=== PATIENT | female | born 1985 | race Two or more races ===

== ENCOUNTER → 2024-05-26 13:11 | Outpatient (BNVA) | payer SELFPAY | PROVIDERS: Visit Provider Physician Assistant Medical | DX: Z02.1 Encounter for pre-employment examination (principal); Z02.89 Encounter for other administrative examinations | CPT/HCPCS: 86481; 86706; 86735; 86762; 86765; 86787 ==

== ENCOUNTER 2024-07-20 04:39 | Emergency (ER) | payer OTHER, SELFPAY ==
--- NOTE | 2024-07-20 | ECG_ITS ---
Test Reason : chest pain Blood Pressure : / mmHG Vent. Rate : 055 BPM Atrial Rate : 055 BPM P-R Int : 174 ms QRS Dur : 088 ms QT Int : 418 ms P-R-T Axes : 026 062 035 degrees QTc Int : 399 ms Sinus bradycardia Otherwise normal ECG No previous ECGs available Referred By: Generic ED Physician Electronically Signed By:ALEC YOUNGBLOOD MD
--- NOTE | ~2024-07-20 | XR_ITS ---
EXAMINATION: XR CHEST CLINICAL INFORMATION: chest pain, cough, shortness of breath COMPARISON: None available. TECHNIQUE: 2 views of the chest were obtained. FINDINGS: Normal appearance of the cardiomediastinal structures. No effusions or pneumothoraces. Normal pattern of pulmonary vasculature. No focal pulmonary consolidation. Minimal multilevel anterior endplate osteophytosis of the thoracic spine. XR/XR chest 2V IMPRESSION: No cardiopulmonary abnormalities. Lungs clear. Electronically signed by: Dontrell Rodriguez MD 07/20/2024 06:23 AM REBECCA LARSEN
[2024-07-20 04:56] VITALS: BP 165/60; PULSE 60; RESP 18; TEMP 36.7; O2SAT 98; BMI 36.8
[2024-07-20 05:50] LABS: Hemoglobin 14.6 g/dl (12.0-16.0); Mean Corpuscular HGB Conc 34.8 g/dl (31.0-35.0); Mean Corpuscular Hemoglobin 31.6 pg (27.0-33.0); Mean Corpuscular Volume 90.9 fL (80.0-98.0); Mean Platelet Volume 10.7 fL (9.4-12.3); Platelet Count 211 X10*3/uL (160-400); Red Blood Count 4.62 X10*6/uL (4.20-5.50); Red Cell Distribution Width 12.6 % (11.0-16.0); White Blood Count 8.5 X10*3/uL (4.8-10.8)
[2024-07-20 05:56] VITALS: PULSE 68; RESP 18; O2SAT 98
[2024-07-20] MEDS: Albuterol Sulfate 2.5 MG, Albuterol Sulfate (0.083%) 2.5 MG 5 MG INHALE (05:58)
[2024-07-20] MEDS: Ketorolac Tromethamine 15 MG/ML VIAL IVPUSH (05:59)
[2024-07-20] MEDS: ondansetron HCL 4 MG/2 ML VIAL IVPUSH (05:59)
[2024-07-20] MEDS: methylPREDNISolone Sod Succ 125 MG/2 ML VIAL 60 MG IVPUSH (05:59)
--- NOTE | 2024-07-20 06:02 | ED_ITS ---
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 She didn't take any medications [employer] as she was at work. complaint: URI/GI illness Onset (ago): hour(s) (several) Location: head and chest Radiation: non-radiation Severity: moderate Quality: aching Pain Consistency: intermittent Relieving factors: none Exacerbating factors: none Associated symptoms: cough, fever/chills, headaches, loss of appetite, malaise, nausea/vomiting and weakness Treatments prior to arrival: none Related Data Previous Rx's ?Medication ?Instructions ?Recorded amoxicillin 875 mg-potassium 1 tab PO BID #14 tabs 07/20/24 clavulanate 125 mg tablet cyclobenzaprine 10 mg tablet 10 mg PO TID PRN muscle spasm #20 07/20/24 tabs ondansetron 4 mg disintegrating 4 mg PO Q8H PRN nausea and 07/20/24 tablet vomiting #20 tabs prednisone 20 mg tablet 40 mg (2 x 20 mg) PO DAILY 5 days 07/20/24 #10 tabs Allergies Allergy/AdvReac Type Severity Reaction Status Date / Time No Known Allergies Allergy Verified 07/20/24 04:59 Review of Systems 2 Review of Systems: Constitutional : No Fever, pos Chills ENT/Mouth : No Hoarseness, No sore throat, No Rhinorrhea Eyes: No Redness, No Discharge, No Vision Changes Cardiovascular : pos Chest Pain, positive SOB Respiratory : positive Cough, No Sputum, positive Wheezing, Gastrointestinal : pos Nausea, pos Vomiting, pos Diarrhea, No abdominal Pain Genitourinary : No Dysuria, No Hematuria Musculoskeletal : No joint pain, No Myalgias Skin : No rash Neuro : No Weakness, No Numbness, No Headache Psych : No anxiety, depression All other systems reviewed and are negative [facility] Past Medical History Attestation statement: The following information was validated with the patient. Source: old records reviewed Medical History (Updated 07/20/24 @ 07:10 by Sheree Whitehead DO) Bronchitis Social History Social History (Updated 07/20/24 @ 06:08 by Sheree Whitehead DO) Patient Tobacco Use Status: Former Tobacco user Use of substances other than those prescribed or required for medical reasons: No Advance Directives: No Advance Directives Information Provided: Yes Patient : No Physical Exam ED Vital Signs: Vital Signs - 24 hr 07/20/24 04:56 07/20/24 05:56 Temperature 98.0 F Pulse Rate 60 68 Respiratory Rate 18 18 Blood Pressure 165/60 H Pulse Oximetry 98 Oxygen Delivery Method Room Air BMI result Body Mass Index 36.8 Appearance: Alert. Oriented X3. No acute distress. Eyes: Pupils equal, round and reactive to light. ENT: Pharynx normal. Neck: Normal inspection. Neck supple. CVS: Normal heart rate and rhythm. Pulses normal. Respiratory: No respiratory distress. Breath sounds coarse and mild rhonchi anterior chest Abdomen: Soft and nontender. Skin: Skin warm and dry. Normal skin color. Normal skin turgor. Extremities: No lower extremity edema. No calf ttp Neuro: Oriented X 3. No motor deficit. No sensory deficit. Medications Administered Discontinued Medications Generic Name Dose Route Start Last Admin Trade Name Freq PRN Reason Stop Dose Admin Albuterol Sulfate 2.5 mg/ 5 mg 07/20/24 05:49 07/20/24 05:58 Albuterol Sulfate 2.5 mg INHALE 07/20/24 05:50 5 mg ONCE ONE Administration Ketorolac Tromethamine 15 mg 07/20/24 05:42 07/20/24 05:59 Ketorolac Tromethamine 15 Mg/Ml Vial IVPUSH 07/20/24 05:43 15 mg ONCE ONE Administration Methylprednisolone Sodium Succinate 60 mg 07/20/24 05:42 07/20/24 05:59 Methylprednisolone Sod Succ 125 Mg/2 Ml Vial IVPUSH 07/20/24 05:43 60 mg ONCE ONE Administration Ondansetron HCl 4 mg 07/20/24 05:42 07/20/24 05:59 Ondansetron Hcl 4 Mg/2 Ml Vial IVPUSH 07/20/24 05:43 4 mg ONCE ONE Administration Medical Decision Making Medical Decision Making MDM Narrative: 39 yo female with PMH of bronchitis here with c/o cough, chills, body aches, headaches, n/v/d started abruptly at this time will need basic labs, CXR, viral panel - start on nebs, IV toradol/zofran and steroids. Possible viral syndrome, bronchitis Differential Diagnosis Differential Diagnoses: The differential diagnosis associated with the presentation includes given rapidity of symptoms and sick contacts suspect viral syndrome bronchitis Admission/Observation Consideration of admission/observation: Escalation of care including admission/observation considered feels much better no hypoxia stable for DC Lab Data [facility] Lab Attestation statement: I reviewed the patient's lab results. 07/20/24 05:44 07/20/24 05:44 Labs: Lab Results 07/20/24 Range/Units 05:44 WBC 8.5 (4.8-10.8) X10*3/uL RBC 4.62 (4.20-5.50) X10*6/uL Hgb 14.6 (12.0-16.0) g/dl Hct 42.0 (37.0-47.0) % MCV 90.9 (80.0-98.0) fL MCH 31.6 (27.0-33.0) pg MCHC 34.8 (31.0-35.0) g/dl RDW 12.6 (11.0-16.0) % Plt Count 211 (160-400) X10*3/uL MPV 10.7 (9.4-12.3) fL Absolute Nucleated RBC 0.000 (0.0-0.012) X10*3/uL Nucleated RBC % (auto) 0.0 (0.0-0.2) /100WBC Sodium 139 (135-145) mmol/L Potassium 4.7 (3.3-5.1) mmol/L Chloride 107 (96-108) mmol/L Carbon Dioxide 25 (22-29) mmol/L Anion Gap 12 (12-20) BUN 10 (9-16) mg/dL Creatinine 0.84 (0.5-1.4) mg/dL Estim Creat Clear Calc 111.9 Estimated GFR > 60 Random Glucose 92 (60-115) mg/dL Calcium 10.0 (8.4-10.2) mg/dL Total Bilirubin 0.4 (0.0-1.0) mg/dL AST 25 (5-31) U/L ALT 24 (0-31) U/L Alkaline Phosphatase 60 (39-117) U/L Troponin I High Sens < 2.7 (<3.5-17.0) ng/L Total Protein 7.3 (6.5-8.0) g/dL Albumin 4.3 (3.5-5.0) g/dL Influenza Type A (PCR) NEGATIVE (Negative) Influenza Type B (PCR) NEGATIVE (Negative) RSV RNA Qual (PCR) NEGATIVE (Negative) SARS-CoV-2 RNA (RT-PCR) NEGATIVE (Negative) Independent Interpretation I performed an independent interpretation of an: EKG and Plain X-Ray (no PNA) Interpretation: Rate: 55 Rhythm: SB [place]: normal Normal P waves. Normal ALEXUS. Normal QRS complex. ST T wave : inverted t waves V1, no ALISTAIR qTC: 399 prior studies: no acute ischemia The study has been interpreted contemporaneously by me. . External Record Review External record reviewed: Outpatient record Prescription Management I considered prescription management with: Antibiotic and Other Discharge Plan Discharge Clinical Impression: Acute viral syndrome, Bronchitis Patient Disposition: Home, Self-Care Instructions: Acute Bronchitis (ED), Viral Syndrome (ED) Additional Instructions: labs reassuring chest xray negative EKG reassuring please follow up for any concerns or worsening symptoms stay hydrated Prescriptions: New cyclobenzaprine 10 mg tablet 10 mg PO TID PRN (Reason: muscle spasm) Qty: 20 0RF prednisone 20 mg tablet 40 mg PO DAILY 5 Days Qty: 10 0RF ondansetron 4 mg tablet,disintegrating 4 mg PO Q8H PRN (Reason: nausea and vomiting) Qty: 20 0RF amoxicillin-pot clavulanate 875-125 mg tablet 1 tab PO BID Qty: 14 0RF Print Language: Nepali
--- NOTE | 2024-07-20 06:05 | PC.NURSE ---
a&ox4. vss and up to date. pt presents to the ED w/ URI sx a few days. pt endorsing increased sob/chest pain/fever/chills/body aches. pt concerned for bronchitis d/t previous hx. labs obtained and ekg performed in triage. 20gIV placed in the left AC - medication administered per provider order. pt currently receiving breathing tx via RT at this time. chest xray completed - results pending at this time. pt on RA w/o difficulty. no sob/wob noted. respirations even/unlabored. plan of care ongoing. call pyle placed within reach.
[2024-07-20 06:12] LABS: Alanine Aminotransferase 24 U/L (0-31); Albumin Level 4.3 g/dL (3.5-5.0); Alkaline Phosphatase 60 U/L (39-117); Anion Gap 12 (12-20); Aspartate Amino Transferase 25 U/L (5-31); Bilirubin Total 0.4 mg/dL (0.0-1.0); Blood Urea Nitrogen 10 mg/dL (9-16); Carbon Dioxide 25 mmol/L (22-29); Chloride 107 mmol/L (96-108); Creatinine Clr Calc Pharmacy 111.9; Estimated Glomerular Filt Rate > 60; Glucose Random 92 mg/dL (60-115); Potassium 4.7 mmol/L (3.3-5.1); Sodium 139 mmol/L (135-145); Total Protein 7.3 g/dL (6.5-8.0)
[2024-07-20 06:19] LABS: Troponin-I High Sensitivity < 2.7 ng/L (<3.5-17.0)
[2024-07-20 06:28] LABS: Influenza A PCR NEGATIVE (Negative); Influenza B PCR NEGATIVE (Negative); Resp Syncy Virus RNA Qual PCR NEGATIVE (Negative); SARS COV2 PCR INHOUSE NEGATIVE (Negative)
[2024-07-20 07:28] VITALS: BP 131/68; PULSE 68; RESP 18; TEMP 37; O2SAT 100
[2024-07-20 07:29] VITALS: BP 131/68; PULSE 68; RESP 18; TEMP 37; O2SAT 100
--- OUTSIDE RECORDS SUMMARY | 2024-07-20 22:36 | XMS_ITS | Continuity of Care Document ---
Author Organization [facility] Address [address] [facility] [place] [facility] [address] [place] [address] Phone Care Team Providers Care Neighborhood Worker Name Role Phone Collin Barraza MD Unavailable Unavailable Allergies, Adverse Reactions, Alerts Substance Reaction Status Criticality No Known Drug Allergies Active No I nformation Medications Medication Instructions Dosage Effective Dates (start - stop) Status Comments naproxen 500 mg tablet take 1 tablet by oral route every 12 hours x 10 days with food - Active POST-OP UFE docusate sodium 100 mg capsule take 1 capsule by oral route every 12 hours x 10 days - Active POST-OP lactulose 20 gram/30 mL oral solution take 30 milliliter by oral route once daily if needed for constipation - Active POST-OP UFE hydrocodone 5 mg-acetaminophen 325 mg tablet take 1 tablet by oral route every 4-6 hours as needed for breakthrough pain. - Active POST-OP UFE bupropion HCl 75 mg tablet take 1 tablet by oral route 2 times every day 75 MG - Active Advair Diskus 100 mcg-50 mcg/dose powder for inhalation inhale 1 puff by inhalation route 2 times every day in the morning and evening approximately 12 hours apart 1.00 puff - Active Procedures Procedure Date Office/outpatient visit est To Be Coded Office/outpatient visit est CONTRAST, 300/ML, PER ML MOD SED BY OR SUP BY PHYSICIAN UFE To Be Coded Vasc embolize/occlude organ Ins cath abd/l-ext art 3rd Ins cath abd/l-ext art 2nd Us guide vascular access Mod sed same phys/qhp 5/>yrs Mod sed same phys/qhp ea Office/outpatient visit new To Be Coded Office/outpatient visit new Advance Directives Directive Yes / No Effective Date File Name No Information Encounters Encounter Description Practice Location Reason(s) For Visit Diagnoses Date Provider Providers Copied on Encounter [facility] [place] [facility] [employer], [address] [place] [address], [id number] , tel:[phone] [facility] [place] [facility] [employer] [facility] No Information 2 Madi Polanco. [address] [place] [address], [address], [id number] , [place]. tel:[phone] Office/outpa tient visit est [facility] [employer] [facility], [address] [place] [address], [id number] , tel:[phone] [facility] [employer] [facility] Leiomyoma of uterus, unspecifiedLeiomyoma of uterus, unspecified 2 Chip Polanco. [address] [place] [address], [address], [address], [place]. tel:[phone] Referring Provider: Collin Saunders, [address] [place] [address], [id number]. tel:[phone] [facility] [employer] [facility], [address] [place] [address], [id number] , [place] tel:[phone] [facility] [employer] [facility] 2 Madi Polanco. [address] [place] [address], [id number] , [place]. tel:[phone] Referring Provider: Collin Saunders, [address] [place] [address], [id number]. tel:[phone] [facility] [employer] [facility], [address] [place] [address], [id number] , tel:[phone] [facility] No Information 2 Chip Polanco. [address] [place] [address], [address], [address], . tel:[phone] Office/outpa tient visit [facility], [address] [place] [address], [id number] , tel:[phone] [address] Leiomyoma of uterus, unspecifiedLeiomyoma of uterus, unspecified 2 Chip Polanco. [address] [place] [address], [facility] [address], [place], [facility], . tel:[phone] Referring Provider: Collin Saunders, [address] [place] [address] [place] [address], [facility]. tel:[phone] As per patient privacy policy some of the clinical information may not be visible. Family History Family Member Type Diagnosis Age At Onset No Information Payers Payer name Insurance type Covered constitution party ID Authoriza tion(s) Assured Benefits [employer] CI [id number] Social History Type Description Quantity Date Captured Comments Sex Female Smoking Status No Information Gender Identity Female Chief Complaint And Reason For Visit No Information Reason For Referral Reason For Referral No Information Plan Of Treatment Date Type Action Status Future Order: Radiology Order Lo wer Body Flouroscopy ([id number]), Ordered on: Ordered Future Order: Lab Order UCG (300), Ordere d on: Ordered History Of Present Illness Encounter Date Complaint History Of Prese nt Illness No Information Functional Status Date Functional Assessmen t No Information Instructions Date Instruction Additional Infor mation No Information Assessments Type Assessment Date No Information Patient Care Teams Name Effective Dates (start - stop) Status Members No Information
--- OUTSIDE RECORDS SUMMARY | 2024-07-20 22:40 | XMS_ITS | Continuity of Care Document ---
Author Organization [facility] Address [address] [facility] [address] [place] [address] Phone Care Team Providers Care Personal Attendant Name Role Phone Collin Barraza MD Unavailable [...] Diagnoses Date Provider Providers Copied on Encounter [facility] [employer], [address] [place] [address], [id number] , tel:[phone] [facility] No Information 2 Madi Polanco. [address] [place] [address], [address], [id number] , [place]. tel:[phone] Office/outpa tient visit est [facility], [address] [place] [address], [id number] , tel:[phone] [facility] Leiomyoma of uterus, unspecifiedLeiomyoma of uterus, unspecified 2 Chip Polanco. [address] [place] [address], [address], [address], [place]. tel:[phone] Referring Provider: Collin Saunders, [address] [place] [address], [id number]. tel:[phone] [facility], [address] [place] [address], [id number] , [place] tel:[phone] [facility] 2 Madi Polanco. [address] [place] [address], [id number] , [place]. tel:[phone] Referring Provider: Collin Saunders, [address] [place] [address], [id number]. tel:[phone] [facility], [address] [place] [address], [id number] , tel:[phone] [facility] No Information 2 Chip Polanco. [address] [place] [address], [address], [address], . tel:[phone] Office/outpa tient visit [facility], [address] [place] [place] [address], [id number] , tel:[phone] [address] Leiomyoma of uterus, unspecifiedLeiomyoma of uterus, unspecified 2 Chip Polanco. [address] [place] [address], [facility] [address], [place], [facility], . tel:[phone] Referring Provider: Collin Saunders, [address] [place] [address] [place] [address], [facility]. tel:[phone] As per patient privacy policy some of the clinical information may not be visible. Family History Family Member Type Diagnosis Age At Onset No Information Payers Payer name Insurance type Covered constitution party ID Authoriza tion(s) [employer] CI [id number] Social History Type Description Quantity Date Captured Comments Sex Female Smoking Status No Information Gender Identity Female Chief Complaint And Reason For Visit No Information Reason For Referral Reason For Referral No Information Plan Of Treatment Date Type Action Status Future Order: Radiology Order Lo wer Body Flouroscopy ([id number]), Ordered on: Ordered Future Order: Lab Order [...]
== END 2024-07-20 07:29 | disposition home or self-care (01) ==
PROVIDERS: Emergency Provider Emergency Medicine
DX: B34.9 Viral infection, unspecified (principal); J40 Bronchitis, not specified as acute or chronic; R06.02 Shortness of breath; Z03.818 Encounter for observation for suspected exposure to other biological agents ruled out; R05.9 Cough, unspecified
CPT/HCPCS: 0241U; 71046; 80053; 84484; 85027; 93005; 94640; 96374; 96375; 99284; 99285; J1885; J2405; J2919

== ENCOUNTER → 2024-07-20 05:10 | Outpatient (BNV) | payer OTHER, SELFPAY | PROVIDERS: Emergency Provider Emergency Medicine; Visit Provider Internal Medicine Cardiovascular Disease | DX: R07.9 Chest pain, unspecified (principal) | CPT/HCPCS: 93010 ==

== ENCOUNTER 2024-08-21 05:31 | Emergency (ER) | payer OTHER, SELFPAY ==
--- NOTE | ~2024-08-21 | XR_ITS ---
CLINICAL HISTORY: work related injury 2 view right knee Comparison: None Findings: No fractures or dislocations. Small patellofemoral compartment osteophytes. No joint space loss or erosions. No joint effusion. No radiopaque foreign body. IMPRESSION: No acute findings. Mild patellofemoral compartment osteoarthropathy. This document has been electronically signed by: Shawanda Dowell MD on 08/21/2024 06:18:45
[2024-08-21 05:33] VITALS: BP 120/74; PULSE 77; RESP 16; TEMP 36.7; O2SAT 99; BMI 36.8
--- NOTE | 2024-08-21 06:10 | PC.NURSE ---
pt awaiting to be seen by ed provider staff member at [facility] xray taken
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
[2024-08-21] MEDS: Ibuprofen 600 MG TABLET PO (07:18)
[2024-08-21 07:24] VITALS: BP 134/86; PULSE 65; RESP 16; TEMP 36.7; O2SAT 99
[2024-08-21 07:34] VITALS: BP 134/76; PULSE 62; RESP 16; TEMP 36.7; O2SAT 98
== END 2024-08-21 07:35 | disposition home or self-care (01) ==
PROVIDERS: Emergency Provider Emergency Medicine
DX: S80.911A Unspecified superficial injury of right knee, initial encounter (principal); X58.XXXA Exposure to other specified factors, initial encounter; Y04.8XXA Assault by other bodily force, initial encounter; Y93.89 Activity, other specified; Y92.239 Unspecified place in hospital as the place of occurrence of the external cause; Y99.0 Civilian activity done for income or pay
CPT/HCPCS: 73560; 99284

== ENCOUNTER 2024-08-29 13:32 | Outpatient (AMB) | payer OTHER, SELFPAY ==
[2024-08-29 13:36] VITALS: BP 130/84; PULSE 88; TEMP 36.2; O2SAT 96; BMI 36.8
--- NOTE | 2024-08-29 13:36 | A.OFFPC_ITS ---
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 Londono, in [facility] Last visit: 1 year ago Last PE:more than a year Specialist: LIYAHN: jonathont on 09/11/24 mammogram: due- Past medical history: depression, anxiety, Medications: wellbutrin 150 mg Family HX: grandmother passed of lung ca, grandfather dialysis, mother diabetes, father had heart issues, not sure Problem: The patient is a 39-year-old female presenting to establish care She reports that she moved up from [place] and has been having issues to find a PCP Patient reports that she has been having a lot of stress since the passing of her father Reports that she used to take Wellbutrin 150 mg and she would like to get back on this medication Because it helped her with her depression and also helped her quit smoking before Reported that she started smoking again due to increased stress depression: She used to be on Wellbutrin 150mg and it helped her stop smoking as well. will reorder wellbutrin and refer her to Psychiatry Reports that she would like talk to someone She denies SI/HI Anxiety: Reports that she gets anxious around the a crowd of people ----reports that Wellbutrin helped her i n the past cigarettes gravings: She is currently smoking 1/2 pack /day Chest pain: Patient reports that she has been having intermittent chest pain for the last 6 months at least once a day She reports that the sensation is right in the middle of her chest just above the epigastric area She reports that these sensations only lasts for seconds however sometimes it takes her breath away Reports that she feels like her heart stops and restarts again Patient reports that she thinks this is all stress related She denies any radiation of the pain, denies dizziness, denies nausea and vomiting, heart palpitation: Reports that sometime she gets it with the chest pain and other times separately from the chest pain Reports that her heart palpitation comes and goes quickly as well Anxiety: will referral acl injury: 2019, left knee surgery. right knee injury at work:twisting trying to get away from a patient She reports that this has been hurting and that she went to the emergency room on 08/21/2024 There they did an x-ray of the knee that showed no acute injuries Patient is not interested in PT at this time reports that she is using what she learned from PT in the past after injuring in her left knee Reports that the pain get as high as a 6 to 7/10 but she does not like medi cations She has been using Tylenol arthritis with positive effect Complain of pain at the medial aspect of her right knee with the danny test. will referred the patient to psychiatry book her physical for physical in 2 weeks. lab order -mammogram ordered [facility] Medical History Bronchitis Social History Housing: House Patient Tobacco Use Status: Current everyday Tobacco user Cigarette Packs Per Day: 0.5 Cigarettes Per Day: 10 e-Cigarette/Vaping Use: Never Used service: No Current occupational status: employed Cognitive needs: No Hearing needs: No Vision needs: No Questionnaire PHQ-9 Over the last 2 weeks, how often have you been bothered by any of the following problems? 1. Little interest or pleasure in doing things: several days 2. Feeling down, depressed, or hopeless: several days 3. Trouble falling or staying asleep, or sleeping too much: several days 4. Feeling tired or having little energy: several days 5. Poor appetite or overeating: several days 6. Feeling bad about yourself - or that you are a failure or have let yourself or your family down: not at all 7. Trouble concentrating on things, such as reading the newspaper or watching television: several days 8. Moving or speaking so slowly that other people could have noticed. Or the opposite - being so fidgety or restless that you have been moving around a lot more than usual: not at all 9. Thoughts that you would be better off or of hurting yourself in some way: not at all Total score: 6 Source: Developed by Drs. James Lang, Tabitha De, Guillermo Spencer and colleagues, with an educational jayro from [email or web address]. Thrive Questionnaire Date Thrive assessed: 08/29/24 I am a: Patient What is your living situation today?: I have a steady place to live Within the past 12 months, did the food you bought not last and you didn't have the money to get more?: Sometimes True Within the past 12 months, did you worry whether your food would run out before you got money to buy more?: Sometimes True Do you have trouble paying for medicines?: Yes Do you have trouble getting transportation to medical appointments?: No Do you have trouble paying your heating and electricity bill?: Yes Do you have trouble taking care of your child, family member or friend?: Yes Do you have trouble with day-to-day activities such as bathing, preparing meals, shopping, managing finances, etc.?: No Are you currently unemployed and looking for a job?: No Are you interested in more education?: No Please select the resources that you would like help with: Utilities and Care for elder or disabled Currently or been in a relationship where the following occur: I choose not to answer THRIVE Score: 3 AUDIT C Alcohol Use Questionnaire (AUDIT-C) 1. How often do you have a drink containing alcohol?: 2-3 times a week 2. How many drinks containing alcohol do you have on a typical day when you are drinking?: 3 or 4 3. How often do you have six or more drinks on one occasion?: Monthly Total Score: 6 MATT-7 AMB Questionnaire MATT-7 Date MATT - 7 assessed: 08/29/24 Feeling nervous, anxious, or on edge: 1 = Several days Not being able to stop or control worryin = Nearly every day Worrying too much about different things: 2 = More than half the days Trouble relaxin = More than half the days Being so restless that it is hard to sit still: 1 = Several days Becoming easily annoyed or irritable: 2 = More than half the days Feeling afraid as if something awful might happen: 1 = Several days Total MATT-7 score (0-4 normal; 5-9 mild; 10-14 moderate; 15-21 severe): 12 Source: Developed by Drs. James Lang, Tabitha De, Guillermo Spencer and colleagues, with an educational jayro from [email or web address]. MATT-7 Assessment Billing MATT-7 Assessment Tool: MATT-7 Assessment 82395 Review of Systems Const Details: Denies chills, Denies fatigue, Denies fever(s), Denies headache(s) and Denies weakness HEENT Denies change in vision, Denies dizziness, Denies headache(s), Denies hearing loss, Denies nasal congestion, Denies sinus pain, Denies sinus pressure and Denies sore throat Card Reports recurrent chest pain, Denies lightheadedness, Denies dyspnea and reports recurrent palpitations Resp Denies cough, Denies dyspnea and Denies wheezing GI Denies abdominal pain, Denies melena, Denies hematochezia, Denies change in bowel habits, Denies dyspepsia and Denies nausea Denies hematuria and Denies dysuria Musc Reports right knee pain, Denies abnormal gait, Denies myalgias, Denies numbness and Denies tingling Skin/Breast Denies rash, Denies unusual bruising and Denies wounds Neuro Denies abnormal gait, Denies dizziness, Denies headache(s), Denies memory loss, Denies numbness, Denies Sensory deficit (Neuro), Denies tingling and Denies weakness Psych Reports anxiety, reports depression and Denies memory loss Endo Denies cold intolerance, Denies fatigue, Denies heat intolerance, Denies polydipsia and Denies polyuria Viktor/Lymph Denies easy bleeding and Denies easy bruising Aller/Immun Denies wheezing Physical exam (Primary Care) Vital Signs: Last Vital Signs Temp 97.1 F 08/29/24 13:36 Pulse 88 08/29/24 13:36 BP 130/84 08/29/24 13:36 Pulse Ox 96 08/29/24 13:36 Oxygen Delivery Method Room Air 08/29/24 13:36 BMI result Body Mass Index 36.8 Tobacco/Smoking Status: Tobacco use Status Tobacco use date assessed 08/29/24 08/29/24 13:49 Patient Tobacco Use Status Current everyday Tobacco 08/29/24 13:49 e-Cigarette/Vaping Use Never Used 08/29/24 13:49 PHQ-9: PHQ-9 Score PHQ-9: Total score 6 08/29/24 13:49 Thrive Assessment: Date of Thrive Assessment Date Thrive assessed 08/29/24 08/29/24 13:49 Currently or been in a relationship where the following occur: I choose not to answer Const Other: General: no acute distress, well developed, alert and awake Nutritional Appearance: well nourished Orientation/consciousness: patient oriented x3 HENMT Head: Yes normocephalic and Yes atraumatic Ears: hearing grossly normal bilaterally and TM's normal bilaterally Eyes Pupils: Equal, round and reactive pupils present and Pupil accommodation reflex normal EOM: EOMs intact bilaterally Neck Neck: Yes normal visual inspection, Yes no lymphadenopathy and Yes trachea midline Thyroid: Thyroid normal Carotids: no bruits Lymphatic: no lymphadenopathy noted Chest Chest palpation & inspection: normal inspection of the chest Resp Effort & Inspection: normal respiratory effort Auscultation: clear to auscultation bilaterally Cardio Rate: regular rate Rhythm: regular rhythm Heart sounds: S1 normal heart sound present, S2 normal heart sound present, no gallops, no murmurs and no rubs GI Abdomen is soft and nontender palpation tenderness present Auscultation: normal bowel sounds General: Yes no CVA tenderness Back/Spine/Pelvis Back: no CVA tenderness other: left knee medical aspect 6-7/10 pain with danny test. No edema or erythema Skin General: warm and dry. Normal skin color. Normal skin turgor Lesions: no lesions Rashes: no rashes Trauma: no lacerations or abrasions Wounds: no wounds Nails: normal Neuro General: patient oriented x3, gait normal Cranial nerves: Yes Equal, round and reactive pupils present Cognition (Neuro): normal cognition Gait exam (Neuro): Normal gait present Sensory Exam: No Sensory deficit (Neuro) Extrem General: Yes normal to inspection, No edema and No calf tenderness Psych Appearance: grossly normal Affect: normal affect Attitude: cooperative Thought process: Normal thought process present Coding Level of Care Code New Pt Level 4 (42153) Diagnoses Chest pain at rest R07.9 Heart palpitations R00.2 Anxiety F41.9 Reactive depression F32.9 Depression Type: reactive depression Smoker F17.200 Encounter for screening mammogram for malignant neoplasm of breast Z12. Breast cancer screening modality: mammogram Acute pain of right knee M25.561 Chronicity: acute Additional Codes MATT-7 Assessment Billing - MATT-7 Assessment Tool: MATT-7 Assessment 15579 ([id number]) Time Spent (min) 35 Assessment & Plan Assessment & Plan (1) Chest pain at rest: Code(s): R07.9 - Chest pain, unspecified Category: Medical Plan: Patient describes he has mild pressure in the middle of her chest. She pointed right above the epigastric region. This pressure takes her breath away sometimes and only lasts a few seconds These episodes has been going on for over 6 months Patient had an EKG done on 07/20/2024 that showed sinus Edwardo with no ischemia This is reassuring-the patient complaints appointing toward her anxiety/depression and increased stress ---will restart the patient on wellbutrin 150 mg that helped her in the past and refer her to Psychiatry ---labs ordered as well (2) Heart palpitations: Code(s): R00.2 - Palpitations Category: Medical Plan: same as above (3) Anxiety: Code(s): F41.9 - Anxiety disorder, unspecified Category: Medical Plan: reorder Wellbutrin and refer the patient to Psychiatry Denies SI/HI (4) Depression: Code(s): F32.A - Depression, unspecified Category: Medical Qualifiers: Depression Type: reactive depression Qualified Code(s): F32.9 - Major depressive disorder, single episode, unspecified Plan: reorder Wellbutrin and refer the patient to Psychiatry Denies SI/HI (5) Smoker: Code(s): F17.200 - Nicotine dependence, unspecified, uncomplicated Category: Social Hx Plan: She is currently smoking a half a pack/day Reports that Wellbutrin helped her to quit in the past (6) Breast cancer screening: Code(s): Z12.39 - Encounter for other screening for malignant neoplasm of breast Category: Medical Qualifiers: Breast cancer screening modality: mammogram Qualified Code(s): Z12.31 - Encounter for screening mammogram for malignant neoplasm of breast Plan: Mammogram ordered (7) Right knee pain: Code(s): M25.561 - Pain in right knee Category: Medical Qualifiers: Chronicity: acute Qualified Code(s): M25.561 - Pain in right knee Plan: Reports twisting her knee at work, she was evaluated in the emergency room X-ray of her knee he has done:No acute findings. Mild patellofemoral compartment osteoarthropathy. She is declining PT at this time and she is not a big fan of medications Continue Tylenol Arthritis OTC Plan Patient to return in 2 weeks for physical exam. Do labs pietro Orders: Orders Complete Blood Count Auto Diff Today Z00.00 - Encounter for general adult me dical examination without abnormal findings Comprehensive [place]. Panel Fast Today Z00.00 - Encounter for general adult medical examination without abnormal findings Vitamin D 25-OH Total Today Z00.00 - Encounter for general adult medical examination without abnormal findings MM tomosynthesis screening BI Today Z12.31 - Encounter for screening mammogram for malignant neoplasm of breast Glucose Fasting Today Z00.00 - Encounter for general adult medical examination without abnormal findings TSH reflex Free T4 Today Z00.00 - Encounter for general adult medical examination without abnormal findings Lipid Panel Today Z00.00 - Encounter for general adult medical examination without abnormal findings UA CC w/rflx Micro + Cult Today Z00.00 - Encounter for general adult medical examination without abnormal findings Referrals Psychiatry Referral F41.9 - Anxiety disorder, unspecified Medications: New bupropion HCl XL (Wellbutrin XL) 150 mg PO QAM 30 tabs 3RF
== END 2024-08-29 14:21 | disposition home or self-care (01) ==
DX: R07.9 Chest pain, unspecified (principal); R00.2 Palpitations; F41.9 Anxiety disorder, unspecified; F32.9 Major depressive disorder, single episode, unspecified; F17.200 Nicotine dependence, unspecified, uncomplicated; Z12.31 Encounter for screening mammogram for malignant neoplasm of breast; M25.561 Pain in right knee

== ENCOUNTER → 2024-08-29 13:32 | Outpatient (BNVA) | payer OTHER, SELFPAY | DX: R07.9 Chest pain, unspecified (principal); R00.2 Palpitations; F41.9 Anxiety disorder, unspecified; F32.9 Major depressive disorder, single episode, unspecified; M25.561 Pain in right knee; F17.210 Nicotine dependence, cigarettes, uncomplicated | CPT/HCPCS: 96127 ==

== ENCOUNTER 2024-09-03 09:50 | Outpatient (REF) | payer OTHER, SELFPAY ==
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
--- OUTSIDE RECORDS SUMMARY | 2024-09-03 09:53 | XMS_ITS | Clinical Summary ---
Author Organization [facility] [address] [place] [address] [place] [phone] Phone Care Team Providers Care Manager Of Training And Development Name Role Phone Mor Tilley MD Primary Care Provider [phone] Social History Tobacco Use Types Packs/Day Years Used Date Smoking Tobacco: Never Assessed Sex and Gender Information Value Date Recorded Sex Assigned at Not on file Gender Identity Not on file Sexual Orientation Not on file Job Start Date Occupation Industry Not on file Not on file Not on file Plan of Treatment Upcoming Encounters Date Type Department Care Team (Late st Contact Info) Description 09/21/2024 10:30 AM EST Office Visit Obstetrics & Gynecology [address] [phone] Silvia Hunt, CNM [address] [place] [address] Health Maintenance Due Date Last Done Comments Breast Cancer Screening 1984 DTaP,Tdap,and Td Vaccines (1 - Tdap) 2003 Hepatitis B Vaccines (1 of 3 - 19+ 3-dose series) 2003 Cervical Cancer Screening: P ap Smear 2005 Depression Screening 03/04/2024 HIV Screening 03/04/2024 Hepatitis C Screening 03/04/2024 Social Influencers of Health Screening 03/04/2024 COVID-19 Vaccine (2023-2 5 season) 2024 Influenza Vaccine (#1) 2024 HIB Vaccines Aged Out No longer eligi ble based on patient's age to complete this topic HPV Vaccines Aged Out No longer eligi ble based on patient's age to complete this topic Hepatitis A Vaccines Aged Out No long er eligible based on patient's age to complete this topic IPV Vaccines Aged Out No longer eligi ble based on patient's age to complete this topic MMR Vaccines Aged Out No longer eligi ble based on patient's age to complete this topic Meningococcal ACWY Vaccine Aged Out N o longer eligible based on patient's age to complete this topic Pneumococcal Vaccine: Pediat rics (0 to 5 Years) and At-Risk Patients (6 to 64 Years) Aged Out No longer eligible b ased on patient's age to complete this topic RSV Immunization Patients Un brenna 20 months Aged Out No longer eligible b ased on patient's age to complete this topic Varicella Vaccines Aged Out No longer eligible based on patient's age to complete this topic Care Teams Manager Of Training And Development Relationship Specialty Start Date End Date Mor Tilley MD [address] [place] [address] PCP - General 12/02/23
[2024-09-03 10:08] LABS: MANUAL DIFF FLAG NO
[2024-09-03 11:25] LABS: Basophils Percent Auto 0.2 % (0-2); Eosinophils Absolute Auto 0.2 X10*3/uL (0.0-0.4); Eosinophils Percent Auto 2.5 % (0-4); Hematocrit 45.3 % (37.0-47.0); Hemoglobin 15.5 g/dl (12.0-16.0); Imm Gran Abs Auto 0.04 X10*3/uL (0.00-0.03); Imm Gran Pct Auto 0.5 % (0.0-0.4); Lymphocytes Absolute Auto 2.2 X10*3/uL (1.2-4.9); Lymphocytes Percent Auto 26.3 % (20-40); Mean Corpuscular HGB Conc 34.2 g/dl (31.0-35.0); Mean Corpuscular Hemoglobin 31.2 pg (27.0-33.0); Mean Corpuscular Volume 91.1 fL (80.0-98.0); Mean Platelet Volume 11.1 fL (9.4-12.3); Monocytes Absolute Auto 0.6 X10*3/uL (0.1-1.2); Monocytes Percent Auto 7.7 % (2-11); Neutrophils Absolute Auto 5.3 x10*3/uL (2.0-8.3); Neutrophils Percent Auto 62.8 % (45-73); Platelet Count 220 X10*3/uL (160-400); Red Blood Count 4.97 X10*6/uL (4.20-5.50); White Blood Count 8.4 X10*3/uL (4.8-10.8)
[2024-09-03 11:28] LABS: Appearance Urine Clear; Color Urine Yellow; Glucose Urine UA Negative (Negative); Leukocyte Esterase Urine Negative (Negative); Nitrite Urine Negative (Negative); Specific Gravity - Urine 1.025 (1.005-1.025); Urine Blood Negative (Negative); Urine Ketones Negative (Negative); Urine Protein Negative (Neg-Trace)
[2024-09-03 12:12] LABS: Albumin Level 4.4 g/dL (3.5-5.0); Alkaline Phosphatase 66 U/L (39-117); Anion Gap 11 (12-20); Aspartate Amino Transferase 29 U/L (5-31); Bilirubin Total 0.8 mg/dL (0.0-1.0); Blood Urea Nitrogen 10 mg/dL (9-16); Calcium 8.7 mg/dL (8.4-10.2); Carbon Dioxide 25 mmol/L (22-29); Chloride 106 mmol/L (96-108); Cholesterol 246 mg/dL (<200); Estimated Glomerular Filt Rate > 60; Glucose Fasting 79 mg/dL (60-99); HDL Cholesterol 56 mg/dL (>40); LDL Cholesterol Calculated 166 mg/dL (<100); Sodium 138 mmol/L (135-145); Total Protein 7.6 g/dL (6.5-8.0); Triglycerides 122 mg/dL (<150)
[2024-09-03 12:43] LABS: Alanine Aminotransferase 37 U/L (0-31); TSH reflex Free T4 1.84 uIU/mL (0.32-4.0); Vitamin D 25-OH Total 9.3 ng/mL (>30)
== END 2024-09-03 09:51 | disposition home or self-care (01) ==
LOC: HO.LAB 09:50
DX: Z00.00 Encounter for general adult medical examination without abnormal findings (principal); Z13.220 Encounter for screening for lipoid disorders; Z13.0 Encounter for screening for diseases of the blood and blood-forming organs and certain disorders involving the immune mechanism
CPT/HCPCS: 36415; 80053; 80061; 81003; 82306; 84443; 85025

== ENCOUNTER → 2024-09-05 13:40 | Outpatient (BNVA) | payer OTHER, SELFPAY | PROVIDERS: Visit Provider Physician Assistant Medical | DX: Z13.89 Encounter for screening for other disorder (principal) | CPT/HCPCS: 99202 ==

== ENCOUNTER 2024-09-09 19:45 | Outpatient (REF) | payer OTHER, SELFPAY ==
--- NOTE | ~2024-09-09 | MR_ITS ---
EXAMINATION: MRI RIGHT KNEE WITHOUT CONTRAST HISTORY: PERSISTENT MEDIAL PAIN COMPARISON: Correlation is made with plain films of the right knee dated 08/21/2024. TECHNIQUE: Coronal T1 and fat-suppressed proton density, sagittal proton density and fat-suppressed proton density, and axial fat suppressed T2 weighted MR images of the right knee were obtained. FINDINGS: Bone marrow: Bone marrow signal intensity is normal. Joint effusion: There is no joint effusion. Overton's cyst: There is no Overton's cyst. Articular cartilage: Intact Muscles: The visualized muscles demonstrate normal signal intensity. Anterior cruciate ligament: Intact Posterior cruciate ligament: Intact Medial collateral ligament: The medial capsular ligament is intact. However, the proximal portion of the tibial collateral ligament is thickened and demonstrates increased signal intensity. This portion of the ligament is displaced away from the distal femur without evidence of complete disruption. Findings are consistent with a grade 2 sprain. The distal portion of the ligament is intact. Lateral collateral ligament: Intact Medial meniscus: Intact Lateral meniscus: Intact Popliteus tendon: Intact Quadriceps tendon: Intact Patellar tendon: Intact Patellar retinacula: Intact MR/MR knee RT wo con IMPRESSION: Grade 2 sprain of the proximal tibial collateral ligament. Electronically signed by: James Farris MD 09/12/2024 07:34 AM REBECCA
== END 2024-09-09 19:46 | disposition home or self-care (01) ==
LOC: HO.MRI 19:45
PROVIDERS: Visit Provider Physician Assistant Medical
DX: M25.561 Pain in right knee (principal); R60.0 Localized edema
CPT/HCPCS: 73721

== ENCOUNTER → 2024-09-09 19:50 | Outpatient (BNV) | payer OTHER, SELFPAY | PROVIDERS: Visit Provider Radiology Diagnostic Radiology | DX: M25.561 Pain in right knee (principal) | CPT/HCPCS: 73721 ==

== ENCOUNTER 2024-09-12 13:32 | Outpatient (AMB) | payer OTHER, SELFPAY ==
--- NOTE | 2024-09-12 13:40 | A.OFFPC_ITS ---
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 Accompanied by: Self / Same As Patient Allergies No Known Allergies Allergy (Verified 09/22/24 11:08) Medication List - Last Reconciled 09/12/24 by MATILDE Keene acetaminophen 500 mg PO Q6H PRN bupropion HCl XL (Wellbutrin XL) 150 mg PO QAM cholecalciferol (vitamin D3) 25 mcg PO DAILY cyclobenzaprine 10 mg PO TID PRN ibuprofen 600 mg PO TID PRN ondansetron 4 mg PO Q8H PRN prednisone 40 mg (2 x 20 mg) PO DAILY 5 days Tobacco use date assessed: 09/12/24 Dental Screening Dental Screen Date: 08/29/24 HPI 2 Week F/U HPI Details The patient is a 39-year-old female he is presenting for annual physical exam Past medical history of anxiety, depression, heart palpitation, smoker, elevated LDL cholesterol level and vitamin-D deficiency The patient had recent blood work reviewed with the patient An order was placed for mammogram on previous visit reports that she has not been called yet to get the exam Patient reports that she had her MRI done of the right knee and the results showed that she had a sprain in that a fracture Reports that she is on light duty at work and she does not like that type of assignment She denies shortness of breath, denies chest pain, denies heart palpitation Patient reports that sometimes she has a hard concentrating, the patient has an appointment with her therapist Discussed with the patient that she should bring this up with a therapist because the psychiatrist can diagnose if she has an attention issue Dentist: 10/05/24 Eye: will make an appt Snellen: Right: Left: Corrected vision:n/a STI screening:n/a Colonoscopy:n/a Mammogram: Ordered prior Flu: up to date COVID: x2, no booster Tdap: The patient isn't sure, she isn't interested in getting this done at this time [facility] Medical History Bronchitis Social History Housing: House Patient Tobacco Use Status: Current everyday Tobacco user Cigarette Packs Per Day: 0.5 Cigarettes Per Day: 10 e-Cigarette/Vaping Use: Never Used Advance Directives: No Advance Directives Information Provided: No Do you have a plan to hurt others: No Plan service: No Current occupational status: employed Cognitive needs: No Hearing needs: No Vision needs: No Questionnaire PHQ-9 Over the last 2 weeks, how often have you been bothered by any of the following problems? 1. Little interest or pleasure in doing things: not at all 2. Feeling down, depressed, or hopeless: not at all 3. Trouble falling or staying asleep, or sleeping too much: not at all 4. Feeling tired or having little energy: not at all 5. Poor appetite or overeating: not at all 6. Feeling bad about yourself - or that you are a failure or have let yourself or your family down: not at all 7. Trouble concentrating on things, such as reading the newspaper or watching television: not at all 8. Moving or speaking so slowly that other people could have noticed. Or the opposite - being so fidgety or restless that you have been moving around a lot more than usual: not at all 9. Thoughts that you would be better off or of hurting yourself in some way: not at all Total score: 0 Depression Screening Interpretation: Negative Depression Screening Done: Yes 24031 - PHQ-9 Billing: Yes Source: Developed by Drs. James Lang, Tabitha De, Guillermo Spencer and colleagues, with an educational jayro from [employer]. Thrive Questionnaire Date Thrive assessed: 09/12/24 I am a: Patient What is your living situation today?: I have a steady place to live Within the past 12 months, did the food you bought not last and you didn't have the money to get more?: Sometimes True Within the past 12 months, did you worry whether your food would run out before you got money to buy more?: Sometimes True Do you have trouble paying for medicines?: Yes Do you have trouble getting transportation to medical appointments?: No Do you have trouble paying your heating and electricity bill?: Yes Do you have trouble taking care of your child, family member or friend?: Yes Do you have trouble with day-to-day activities such as bathing, preparing meals, shopping, managing finances, etc.?: No Are you currently unemployed and looking for a job?: No Are you interested in more education?: No Currently or been in a relationship where the following occur: I choose not to answer THRIVE Score: 3 AUDIT C Alcohol Use Questionnaire (AUDIT-C) 1. How often do you have a drink containing alcohol?: Monthly or less 2. How many drinks containing alcohol do you have on a typical day when you are drinking?: 1 or 2 3. How often do you have six or more drinks on one occasion?: Never Total Score: 1 MATT-7 AMB Questionnaire MATT-7 Date MATT - 7 assessed: 09/12/24 Feeling nervous, anxious, or on edge: 0 = Not at all Not being able to stop or control worryin = Not at all Worrying too much about different things: 0 = Not at all Trouble relaxin = Not at all Being so restless that it is hard to sit still: 0 = Not at all Becoming easily annoyed or irritable: 0 = Not at all Feeling afraid as if something awful might happen: 0 = Not at all Total MATT-7 score (0-4 normal; 5-9 mild; 10-14 moderate; 15-21 severe): 0 Source: Developed by Drs. James Lang, Tabitha De, Guillermo Spencer and colleagues, with an educational jayro from [employer]. MATT-7 Assessment Billing MATT-7 Assessment Tool: MATT-7 Assessment 21423 Review of Systems Const Details: Denies chills, Denies fatigue, Denies fever(s), Denies headache(s) and Denies weakness HEENT Denies change in vision, Denies dizziness, Denies headache(s), Denies hearing loss, Denies nasal congestion, Denies sinus pain, Denies sinus pressure and Denies sore throat Card Reports intermittent chest pain, Denies lightheadedness, Denies dyspnea and reports intermittent palpitations Resp Denies cough, Denies dyspnea and Denies wheezing GI Denies abdominal pain, Denies melena, Denies hematochezia, Denies change in bowel habits, Denies dyspepsia and Denies nausea Denies hematuria and Denies dysuria Musc Denies abnormal gait, Denies myalgias, reports right knee pain, Denies numbness and Denies tingling Skin/Breast Denies rash, Denies unusual bruising and Denies wounds Neuro Denies abnormal gait, Denies dizziness, Denies headache(s), Denies memory loss, Denies numbness, Denies Sensory deficit (Neuro), Denies tingling and Denies weakness Other: Reports concentration issues Psych Denies anxiety, Denies depression and Denies memory loss Endo Denies cold intolerance, Denies fatigue, Denies heat intolerance, Denies polydipsia and Denies polyuria Viktor/Lymph Denies easy bleeding and Denies easy bruising Aller/Immun Denies wheezing Physical exam (Primary Care) Vital Signs: Last Vital Signs Temp 96.9 F 09/12/24 13:41 Pulse 73 09/12/24 13:41 BP 118/86 09/12/24 13:41 Pulse Ox 96 09/12/24 13:41 Oxygen Delivery Method Room Air 09/12/24 13:41 BMI result Body Mass Index 36.8 Tobacco/Smoking Status: Tobacco use Status Tobacco use date assessed 09/12/24 09/12/24 13:45 Patient Tobacco Use Status Current everyday Tobacco 09/12/24 13:45 e-Cigarette/Vaping Use Never Used 09/12/24 13:45 PHQ-9: PHQ-9 Score PHQ-9: Total score 0 09/13/24 12:51 Depression Screening Interpretation: Negative Thrive Assessment: Date of Thrive Assessment Date Thrive assessed 09/12/24 09/12/24 13:45 Currently or been in a relationship where the following occur: I choose not to answer Const Other: General: no acute distress, well developed, alert and awake Nutritional Appearance: well nourished Orientation/consciousness: patient oriented x3 HENMT Head: Yes normocephalic and Yes atraumatic Ears: hearing grossly normal bilaterally and TM's normal bilaterally General nose exam: Normal external nose present and Normal nares present Mouth: Normal oral and palatal mucosa present and moist mucous membranes Teeth and gingiva: dentition normal Throat: Yes oropharynx normal Eyes Pupils: Equal, round and reactive pupils present and Pupil accommodation reflex normal EOM: EOMs intact bilaterally Neck Neck: Yes normal visual inspection, Yes no lymphadenopathy and Yes trachea midline Thyroid: Thyroid normal Carotids: no bruits Lymphatic: no lymphadenopathy noted Chest Chest palpation & inspection: normal inspection of the chest Resp Effort & Inspection: normal respiratory effort Auscultation: clear to auscultation bilaterally Cardio Rate: regular rate Rhythm: regular rhythm Heart sounds: S1 normal heart sound present, S2 normal heart sound present, no gallops, no murmurs and no rubs Bruits: no abdominal aortic bruits and no carotid bruits GI Palpation (GI): No Abdominal aortic bruit present, + epigastric pain with palpation, No hepatosplenomegaly present and No Rebound tenderness present Auscultation: normal bowel sounds General: Yes no CVA tenderness Back/Spine/Pelvis Back: no CVA tenderness Cervical Spine: cervical ROM normal and No Cervical spine tenderness Thoracic/Lumbar Spine: thoraco-lumbar ROM normal, No pain with thoraco-lumbar ROM, No thoracic spinal tenderness and No lumbar spinal tenderness Other: Right knee without edema or erythema,+ROM, no pain with palpation Skin General: warm and dry. Normal skin color. Normal skin turgor Lesions: no lesions Rashes: no rashes Trauma: no lacerations or abrasions Wounds: no wounds Nails: normal Neuro General: patient oriented x3, gait normal and CN's II-XI intact bilaterally Cranial nerves: Yes Equal, round and reactive pupils present Cognition (Neuro): normal cognition Gait exam (Neuro): Normal gait present Motor exam (neuro): 5/5 motor strength present throughout Sensory Exam: No Sensory deficit (Neuro) Deep tendon reflexes (DTR's): Right patellar reflex intensity grade: 2+ and Left patellar reflex intensity grade: 2+ Extrem General: Yes normal to inspection, No edema and No calf tenderness Psych Appearance: grossly normal Affect: normal affect Attitude: cooperative Thought process: Normal thought process present Results Reviewed Results Reviewed: Laboratory Tests 09/03/24 09/03/24 10:01 10:07 WBC 8.4 RBC 4.97 Hgb 15.5 Hct 45.3 MCV 91.1 MCH 31.2 Plt Count 220 Sodium 138 Potassium 4.0 Chloride 106 Carbon Dioxide 25 BUN 10 Creatinine 0.73 Estimated GFR > 60 Fasting Glucose 79 AST 29 ALT 37 H Triglycerides 122 Cholesterol 246 H LDL Cholesterol, Calc 166 H HDL Cholesterol 56 25-OH Vitamin D Total 9.3 L TSH 1.84 Urine Color Yellow Urine Appearance Clear Urine pH 6.0 Ur Specific [place] 1.025 Urine Protein Negative Urine Glucose (UA) Negative Urine Ketones Negative Urine Blood Negative Urine Nitrite Negative Ur Leukocyte Esterase Negative Coding Level of Care Code Est Pt Prev Care 40-64y(42752) Diagnoses Annual physical exam Z00.00 Heart palpitations R00.2 Chest pain at rest R07.9 Elevated LDL cholesterol level E78.00 Epigastric pain R10.13 Elevated alanine aminotransferase (ALT) level R74.01 Vitamin D deficiency E55.9 Acute pain of right knee M25.561 Chronicity: acute Attention deficit R41.840 Anxiety F41.9 Reactive depression F32.9 Depression Type: reactive depression Smoker F17.200 Encounter for screening mammogram for malignant neoplasm of breast Z12.31 Breast cancer screening modality: mammogram Additional Codes MATT-7 Assessment Billing - MATT-7 Assessment Tool: MATT-7 Assessment 46175 ([id number]) PHQ-9 - 69665 - PHQ-9 Billing: Yes ([id number]) Time Spent (min) 36 Assessment & Plan Assessment & Plan (1) Annual physical exam: Code(s): Z00.00 - Encounter for general adult medical examination without abnormal findings Category: Medical Plan: The patient had recent blood work done that was reviewed with her. discussed with patient about lifestyle modification due to elevated cholesterol and liver enzyme The patient is currently awaiting a call to get mammogram completed She is up-to-date on most vaccines. She reports COVID vaccine x2 without any boosters. She is not interested in getting any boosters at this time. Patient is unsure of Tdap scheduled. He is not interested in getting that done today either. Enrollment Eligibility Representative referral was done prior. Patient reports that she was called and had an appointment but her appointment was canceled because they did not received her past medical history. Patient reports that she needs a new referral, another pharm tech referral was placed (2) Heart palpitations: Code(s): R00.2 - Palpitations Category: Medical Plan: same as above (3) Chest pain at rest: Code(s): R07.9 - Chest pain, unspecified Category: Medical Plan: Patient describes he has mild pressure in the middle of her chest. She pointed right above the epigastric region. This pressure takes her breath away sometimes and only lasts a few seconds These episodes has been going on for over 6 months Patient had an EKG done on 07/20/2024 that showed sinus Edwardo with no ischemia This is reassuring-the patient complaints appointing toward her anxiety/depression and increased stress -- wellbutrin 150 mg was restarted about 2 weeks ago she is reporting positive effects Reports having an upcoming appointment with therapy (4) Elevated LDL cholesterol level: Code(s): E78.00 - Pure hypercholesterolemia, unspecified Category: Medical Plan: Total cholesterol 246, LDL 166, discussed with patient about making dietary changes/lifestyle modifications Patient reports that she is having difficulty cutting down on eating rice but she is determined on making these changes (5) Epigastric pain: Code(s): R10.13 - Epigastric pain Category: Medical Plan: Patient complained of chest pain while pointing to epigastric region on last visit. EKG was completed that showed sinus Edwardo with no ischemia Patient continues to complain of epigastric pain we will trial patient on omeprazole 20 mg daily Reinforced dietary restrictions (6) Elevated alanine aminotransferase (ALT) level: Code(s): R74.01 - Elevation of levels of liver transaminase levels Category: Medical Plan: ALT 37, this is most likely due to the patient elevated cholesterol. Discussed with patient that lifestyle modification almost like correct her elevated liver enzyme will repeat labs in 3 months (7) Vitamin D deficiency: Code(s): E55.9 - Vitamin D deficiency, unspecified Category: Medical Plan: Vitamin D 9.3 , continue cholecalciferol 25 mcg daily Will recheck labs in 3 months (8) Right knee pain: Code(s): M25.561 - Pain in right knee Category: Medical Qualifiers: Chronicity: acute Qualified Code(s): M25.561 - Pain in right knee Plan: Reports twisting her knee at work, she was evaluated in the emergency room X-ray of her knee he has done:No acute findings. Mild patellofemoral compartment osteoarthropathy. She is declining PT at this time and she is not a big fan of medications Continue Tylenol Arthritis OTC MRI done that showed grade 2 sprain of the proximal tibial collateral ligament (9) Attention deficit: Code(s): R41.840 - Attention and concentration deficit Category: Medical Plan: Patient reports attention issues The patient was encouraged to talk to her therapist about this and see if the psychiatry could evaluate her (10) Anxiety: Code(s): F41.9 - Anxiety disorder, unspecified Category: Medical Plan: Same as above (11) Depression: Code(s): F32.A - Depression, unspecified Category: Medical Qualifiers: Depression Type: reactive depression Qualified Code(s): F32.9 - Major depressive disorder, single episode, unspecified Plan: reorder Wellbutrin and refer the patient to Psychiatry. She is interested in speaking to a therapist The patient has been on Wellbutrin for approximately 2 weeks now and reports that she is starting to feel a little bit better She reports that she even started cutting down on her cigarettes Denies SI/HI (12) Smoker: Code(s): F17.200 - Nicotine dependence, unspecified, uncomplicated Category: Social Hx Plan: She is currently smoking a half a pack/day Reports that Wellbutrin helped her to quit in the past (13) Breast cancer screening: Code(s): Z12.39 - Encounter for other screening for malignant neoplasm of breast Category: Medical Qualifiers: Breast cancer screening modality: mammogram Qualified Code(s): Z12.31 - Encounter for screening mammogram for malignant neoplasm of breast Plan: Mammogram ordered on previous visits. Patient reports that no one has called her so far. Plan Patient to follow up in 3 months. Please get blood work done a week before follow up appointment Orders: Orders Complete Blood Count Auto Diff 3 Months F32.9 - Major depressive disorder, single episode, unspecified, F17.200 - Nicotine dependence, unspecified, uncomplicated, F41.9 - Anxiety disorder, unspecified, R00.2 - Palpitations, R07.9 - Chest pain, unspecified, E78.00 - Pure hypercholesterolemia, unspecified, E55.9 - Vitamin D deficiency, unspecified UA CC w/rflx Micro + Cult 3 Months F32.9 - Major depressive disorder, single episode, unspecified, F17.200 - Nicotine dependence, unspecified, uncomplicated, F41.9 - Anxiety disorder, unspecified, R00.2 - Palpitations, R07.9 - Chest pain, unspecified, E78.00 - Pure hypercholesterolemia, unspecified, E55.9 - Vitamin D deficiency, unspecified Vitamin D 25-OH Total 3 Months F32.9 - Major depressive disorder, single episode, unspecified, F17.200 - Nicotine dependence, unspecified, uncomplicated, F41.9 - Anxiety disorder, unspecified, R00.2 - Palpitations, R07.9 - Chest pain, unspecified, E78.00 - Pure hypercholesterolemia, unspecified, E55.9 - Vitamin D deficiency, unspecified Lipid Panel 3 Months F32.9 - Major depressive disorder, single episode, unspecified, F17.200 - Nicotine dependence, unspecified, uncomplicated, F41.9 - Anxiety disorder, unspecified, R00.2 - Palpitations, R07.9 - Chest pain, unspecified, E78.00 - Pure hypercholesterolemia, unspecified, E55.9 - Vitamin D deficiency, unspecified Comprehensive [place]. Panel Fast 3 Months F32.9 - Major depressive disorder, single episode, unspecified, F17.200 - Nicotine dependence, unspecified, uncomplicated, F41.9 - Anxiety disorder, unspecified, R00.2 - Palpitations, R07.9 - Chest pain, unspecified, E78.00 - Pure hypercholesterolemia, unspecified, E55.9 - Vitamin D deficiency, unspecified TSH reflex Free T4 3 Months F32.9 - Major depressive disorder, single episode, unspecified, F17.200 - Nicotine dependence, unspecified, uncomplicated, F41.9 - Anxiety disorder, unspecified, R00.2 - Palpitations, R07.9 - Chest pain, unspecified, E78.00 - Pure hypercholesterolemia, unspecified, E55.9 - Vitamin D deficiency, unspecified Glucose Fasting 3 Months F32.9 - Major depressive disorder, single episode, unspecified, F17.200 - Nicotine dependence, unspecified, uncomplicated, F41.9 - Anxiety disorder, unspecified, R00.2 - Palpitations, R07.9 - Chest pain, unspecified, E78.00 - Pure hypercholesterolemia, unspecified, E55.9 - Vitamin D deficiency, unspecified 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
[2024-09-12 13:41] VITALS: BP 118/86; PULSE 73; TEMP 36.1; O2SAT 96; BMI 36.8
--- OUTSIDE RECORDS SUMMARY | 2024-09-12 14:52 | XMS_ITS | Continuity of Care Document ---
Author Organization [facility] Address [address] [facility] [address] [place] [address] Phone Care Team Providers Care Collection Systems Foreman Name Role Phone Collin Barraza MD Unavailable [...] Diagnoses Date Provider Providers Copied on Encounter [facility] [place] [facility], [address] [place] [address], [id number] , tel:[phone] [facility] [place] [facility] [employer] [facility] No Information 2 Madi Polanco. [address] [place] [address], [address], [id number] , [place]. tel:[phone] Office/outpa tient visit est [facility], [address] [place] [address], [id number] , tel:[phone] [facility] [facility] Leiomyoma of uterus, unspecifiedLeiomyoma of uterus, unspecified 2 Chip Polanco. [address] [place] [address], [address], [address], [place]. tel:[phone] Referring Provider: Collin Saunders, [address] [place] [address], [id number]. tel:[phone] [facility], [address] [place] [address], [id number] , [place] tel:[phone] [facility] 2 Madi Polanco. [address] [place] [address], [id number] , [place]. tel:[phone] Referring Provider: Collin Saunders, [address] [place] [address], [address]. tel:[phone] [facility] [facility], [address] [place] [address], [id number] , tel:[phone] [facility] [place] Information 2 Chip Polanco. [address] [place] [address], [address], [address], . tel:[phone] Office/outpa tient visit [facility], [address] [place] [address], [id number] , tel:[phone] [address] Leiomyoma of uterus, unspecifiedLeiomyoma of uterus, unspecified 2 Chip Polanco. [address] [place] [address], [facility] [address], [place], [facility], . tel:[phone] Referring Provider: Collin Saunders, [address] [place] [address] [place] [address], [facility]. tel:[phone] As per patient privacy policy some of the clinical information may not be visible. Family History Family Member Type Diagnosis Age At Onset No Information Payers Payer name Insurance type Covered constitution party ID Authoriza tion(s) [employer] CI [id number] Social History Type Description Quantity Date Captured Comments Sex Female Smoking Status No Information Gender Identity Female Chief Complaint And Reason For Visit No Information Reason For Referral Reason For Referral No Information Plan Of Treatment Date Type Action Status Future Order: Radiology Order Lo wer Body Flouroscopy ([id number]), Ordered on: Ordered Future Order: Lab Order [...]
--- OUTSIDE RECORDS SUMMARY | 2024-09-12 14:52 | XMS_ITS | Clinical Summary ---
Author Organization [facility] [address] [place] [address] [place] [phone] Phone Care Team Providers Care Fixing Carpenter Name Role Phone Mor Tilley MD Primary Care Provider [phone] Social History Tobacco Use Types Packs/Day Years [...] AM EST Office Visit Obstetrics & Gynecology [address] [phone] Silvia Hunt, CNM [address] [place] [address] Health Maintenance Due Date Last Done Comments [...] age to complete this topic Care Teams Fixing Carpenter Relationship Specialty Start Date End Date Mor Tilley MD [address] [place] [address] PCP - General 12/02/23
== END 2024-09-12 15:14 | disposition home or self-care (01) ==
DX: Z00.00 Encounter for general adult medical examination without abnormal findings (principal); R00.2 Palpitations; R07.9 Chest pain, unspecified; E78.00 Pure hypercholesterolemia, unspecified; R10.13 Epigastric pain; R74.01 Elevation of levels of liver transaminase levels; E55.9 Vitamin D deficiency, unspecified; M25.561 Pain in right knee; R41.840 Attention and concentration deficit; F41.9 Anxiety disorder, unspecified; F32.9 Major depressive disorder, single episode, unspecified; F17.200 Nicotine dependence, unspecified, uncomplicated; Z12.31 Encounter for screening mammogram for malignant neoplasm of breast

== ENCOUNTER → 2024-09-12 13:32 | Outpatient (BNVA) | payer OTHER, SELFPAY | DX: Z00.00 Encounter for general adult medical examination without abnormal findings (principal); R00.2 Palpitations; R07.9 Chest pain, unspecified; E78.00 Pure hypercholesterolemia, unspecified; R10.13 Epigastric pain; R74.01 Elevation of levels of liver transaminase levels; E55.9 Vitamin D deficiency, unspecified; M25.561 Pain in right knee; R41.840 Attention and concentration deficit; F41.9 Anxiety disorder, unspecified; F32.9 Major depressive disorder, single episode, unspecified; F17.210 Nicotine dependence, cigarettes, uncomplicated; Z79.899 Other long term (current) drug therapy | CPT/HCPCS: 96127 ==

== ENCOUNTER → 2024-09-14 11:49 | Outpatient (BNVA) | payer OTHER, SELFPAY | PROVIDERS: Visit Provider Physician Assistant Medical | DX: Z13.89 Encounter for screening for other disorder (principal) | CPT/HCPCS: 99213 ==

== ENCOUNTER 2024-09-16 09:34 | Outpatient (REF) | END 2024-09-16 09:35 | disposition home or self-care (01) | LOC: HO.MAMMO 09:34 | DX: N61.0 Mastitis without abscess (principal); N64.52 Nipple discharge ==

== ENCOUNTER → 2024-09-16 09:45 | Outpatient (BNV) | payer OTHER, SELFPAY | PROVIDERS: Visit Provider Internal Medicine | DX: N64.52 Nipple discharge (principal) | CPT/HCPCS: 76642; 77062; 77066 ==

== ENCOUNTER 2024-09-22 10:42 | Emergency (ER) | payer OTHER, SELFPAY ==
[2024-09-22 11:04] VITALS: BP 108/69; PULSE 96; RESP 18; TEMP 36.6; O2SAT 99; BMI 34.3
--- NOTE | 2024-09-22 11:09 | ECG_ITS ---
Test Reason : cp Blood Pressure : */* mmHG Vent. Rate : 86 BPM Atrial Rate : 86 BPM P-R Int : 128 ms QRS Dur : 84 ms QT Int : 362 ms P-R-T Axes : 19 3 13 degrees QTcB Int : 433 ms Normal sinus rhythm Normal ECG When compared with ECG of 20-Jul-2024 05:10, Vent. rate has increased by 31 bpm Questionable change in QRS axis Referred By: Luz Marina Reina Electronically Signed By: ALEC YOUNGBLOOD MD
--- NOTE | 2024-09-22 11:09 | ED_ITS ---
HPI - General Adult General Chief complaint: Nausea/Vomiting/Diarrhea Stated complaint: Vomiting, diarrhea Time Seen by Provider: 09/22/24 17:32 Related Data Previous Rx's ?Medication ?Instructions ?Recorded cyclobenzaprine 10 mg tablet 10 mg PO TID PRN muscle spasm #20 07/20/24 tabs ondansetron 4 mg disintegrating 4 mg PO Q8H PRN nausea and 07/20/24 tablet vomiting #20 tabs prednisone 20 mg tablet 40 mg (2 x 20 mg) PO DAILY 5 days 07/20/24 #10 tabs acetaminophen 500 mg tablet 500 mg PO Q6H PRN fever or pain 08/21/24 #30 tabs ibuprofen 600 mg tablet 600 mg PO TID PRN fever or pain 08/21/24 #30 tabs bupropion HCl 150 mg 24 hr tablet, 150 mg PO QAM #30 tabs 08/29/24 extended release (Wellbutrin XL) cholecalciferol (vitamin D3) 25 25 mcg PO DAILY #30 caps 25 mcg (1,000 unit) capsule omeprazole 20 mg capsule,delayed 20 mg PO DAILY #30 caps 09/12/24 release sulfamethoxazole 800 1 tab PO BID 10 days #20 tabs 09/15/24 mg-trimethoprim 160 mg tablet (Bactrim DS) Allergies Allergy/AdvReac Type Severity Reaction Status Date / Time No Known Allergies Allergy Verified 09/22/24 11:08 [facility] Past Medical History Medical History Bronchitis Social History Social History Housing: House Patient Tobacco Use Status: Current everyday Tobacco user Cigarette Packs Per Day: 0.5 Cigarettes Per Day: 10 e-Cigarette/Vaping Use: Never Used Advance Directives: No Advance Directives Information Provided: No Do you have a plan to hurt others: No Plan service: No Current occupational status: employed Cognitive needs: No Hearing needs: No Vision needs: No Physical Exam ED Vital Signs: Vital Signs - 24 hr 09/22/24 11:04 Temperature 97.8 F Pulse Rate 96 Respiratory Rate 18 Blood Pressure 108/69 Pulse Oximetry 99 Oxygen Delivery Method Room Air BMI result Body Mass Index 34.3 Course Course Course Narrative: This is a rapid medical exam performed by Xavi Reina NP: Additional HPI, ROS, PE not included below will be deferred to primary provider. Patient is a 39-year-old female presenting with complaint of nausea, vomiting and diarrhea since last night at work. Associated epigastric/chest pain. Plan: EKG, labs, viral panel Medical Decision Making Lab Data 09/22/24 11:17 09/22/24 11:17 Labs: Lab Results 09/22/24 Range/Units 11:17 WBC 8.5 (4.8-10.8) X10*3/uL RBC 5.19 (4.20-5.50) X10*6/uL Hgb 16.5 H (12.0-16.0) g/dl Hct 45.5 (37.0-47.0) % MCV 87.7 (80.0-98.0) fL MCH 31.8 (27.0-33.0) pg MCHC 36.3 H (31.0-35.0) g/dl RDW 12.8 (11.0-16.0) % Plt Count 185 (160-400) X10*3/uL MPV 10.8 (9.4-12.3) fL Immature Gran % (Auto) 0.5 H (0.0-0.4) % Neut % (Auto) 88.7 H (45-73) % Lymph % (Auto) 5.4 L (20-40) % [place] % (Auto) 4.5 (2-11) % Eos % (Auto) 0.8 (0-4) % Baso % (Auto) 0.1 (0-2) % Lymph # (Auto) 0.5 L (1.2-4.9) X10*3/uL [place] # (Auto) 0.4 (0.1-1.2) X10*3/uL Eos # (Auto) 0.1 (0.0-0.4) X10*3/uL Baso # (Auto) 0.0 (0.0-0.2) X10*3/uL Abs Immat Gran (auto) 0.04 H (0.00-0.03) X10*3/uL Absolute Neuts (auto) 7.5 (2.0-8.3) x10*3/uL Absolute Nucleated RBC 0.000 (0.0-0.012) X10*3/uL Nucleated RBC % (auto) 0.0 (0.0-0.2) /100WBC Sodium 134 L (135-145) mmol/L Potassium 4.0 (3.3-5.1) mmol/L Chloride 105 (96-108) mmol/L Carbon Dioxide 19 L (22-29) mmol/L Anion Gap 14 (12-20) BUN 11 (9-16) mg/dL Creatinine 0.79 (0.5-1.4) mg/dL Estim Creat Clear Calc 114.6 Estimated GFR > 60 Random Glucose 102 (60-115) mg/dL Calcium 9.2 (8.4-10.2) mg/dL Magnesium 2.0 (1.6-2.6) mg/dL Total Bilirubin 1.2 H (0.0-1.0) mg/dL AST 27 (5-31) U/L ALT 31 (0-31) U/L Alkaline Phosphatase 61 (39-117) U/L Total Protein 8.1 H (6.5-8.0) g/dL Albumin 4.6 (3.5-5.0) g/dL Influenza Type A (PCR) NEGATIVE (Negative) Influenza Type B (PCR) NEGATIVE (Negative) RSV RNA Qual (PCR) NEGATIVE (Negative) SARS-CoV-2 RNA (RT-PCR) NEGATIVE (Negative) Discharge Plan Discharge Clinical Impression: Nausea & vomiting Patient Disposition: Left W/O Completing Treatment Prescriptions: No Action cholecalciferol (vitamin D3) 25 mcg (1,000 unit) capsule 25 mcg PO DAILY Qty: 30 3RF sulfamethoxazole-trimethoprim [Bactrim DS] 800-160 mg tablet 1 tab PO BID 10 Days Qty: 20 0RF cyclobenzaprine 10 mg tablet 10 mg PO TID PRN (Reason: muscle spasm) Qty: 20 0RF prednisone 20 mg tablet 40 mg PO DAILY 5 Days Qty: 10 0RF ondansetron 4 mg tablet,disintegrating 4 mg PO Q8H PRN (Reason: nausea and vomiting) Qty: 20 0RF ibuprofen 600 mg tablet 600 mg PO TID PRN (Reason: fever or pain) Qty: 30 0RF acetaminophen 500 mg tablet 500 mg PO Q6H PRN (Reason: fever or pain) Qty: 30 0RF bupropion HCl [Wellbutrin XL] 150 mg tablet extended release 24 hr 150 mg PO QAM Qty: 30 3RF omeprazole 20 mg capsule,delayed release(DR/EC) 20 mg PO DAILY Qty: 30 3RF Discharge Date/Time: 09/22/24 17:35
[2024-09-22 11:26] LABS: MANUAL DIFF FLAG NO
[2024-09-22 11:28] LABS: Basophils Percent Auto 0.1 % (0-2); Eosinophils Absolute Auto 0.1 X10*3/uL (0.0-0.4); Eosinophils Percent Auto 0.8 % (0-4); Hematocrit 45.5 % (37.0-47.0); Hemoglobin 16.5 g/dl (12.0-16.0); Imm Gran Abs Auto 0.04 X10*3/uL (0.00-0.03); Imm Gran Pct Auto 0.5 % (0.0-0.4); Lymphocytes Absolute Auto 0.5 X10*3/uL (1.2-4.9); Lymphocytes Percent Auto 5.4 % (20-40); Mean Corpuscular HGB Conc 36.3 g/dl (31.0-35.0); Mean Corpuscular Hemoglobin 31.8 pg (27.0-33.0); Mean Corpuscular Volume 87.7 fL (80.0-98.0); Mean Platelet Volume 10.8 fL (9.4-12.3); Monocytes Absolute Auto 0.4 X10*3/uL (0.1-1.2); Monocytes Percent Auto 4.5 % (2-11); Neutrophils Absolute Auto 7.5 x10*3/uL (2.0-8.3); Neutrophils Percent Auto 88.7 % (45-73); Platelet Count 185 X10*3/uL (160-400); Red Blood Count 5.19 X10*6/uL (4.20-5.50); Red Cell Distribution Width 12.8 % (11.0-16.0); White Blood Count 8.5 X10*3/uL (4.8-10.8)
[2024-09-22 12:01] LABS: Alanine Aminotransferase 31 U/L (0-31); Albumin Level 4.6 g/dL (3.5-5.0); Alkaline Phosphatase 61 U/L (39-117); Anion Gap 14 (12-20); Aspartate Amino Transferase 27 U/L (5-31); Bilirubin Total 1.2 mg/dL (0.0-1.0); Blood Urea Nitrogen 11 mg/dL (9-16); Calcium 9.2 mg/dL (8.4-10.2); Carbon Dioxide 19 mmol/L (22-29); Chloride 105 mmol/L (96-108); Creatinine Clr Calc Pharmacy 114.6; Estimated Glomerular Filt Rate > 60; Glucose Random 102 mg/dL (60-115); Sodium 134 mmol/L (135-145); Total Protein 8.1 g/dL (6.5-8.0)
[2024-09-22 12:11] LABS: Influenza A PCR NEGATIVE (Negative); Influenza B PCR NEGATIVE (Negative); Resp Syncy Virus RNA Qual PCR NEGATIVE (Negative); SARS COV2 PCR INHOUSE NEGATIVE (Negative)
--- OUTSIDE RECORDS SUMMARY | 2024-09-22 16:27 | XMS_ITS | Clinical Summary ---
Author Organization [address] Address [address] [place] [phone] Phone Care Team Providers Care Senior Technical Trainer Name Role Phone Mor Tilley MD Primary Care Provider Allergies No known active allergies Medications buPROPion SR (WELLBUTRIN SR) 100 mg 12 hr tablet 09/20/2024 Active sulfamethoxazole -trimethoprim (BACTRIM DS,SEPTRA DS) 800-160 mg per tablet 09/15/2024 Active omeprazole (PriLOSEC) [address] capsule 09/12/2024 Active hydrOXYzine HCL (ATARAX) 25 mg tablet 09/20/2024 Active vitamin iron fum-folic acid 27-0.8 mg per tablet Take 1 tablet by mouth 1 (one) time each day. 90 tablet 3 09/21/2024 Active cholecalciferol (VITAMIN D-3) 50 mcg (2,000 unit) tablet Take 1 tablet (2,000 Units total) by mouth 1 (one) time each day. Active Encounters Date Type Department Care Team Description 09/21/2024 10:30 AM EST Office Visit Obstetrics & Gynecology - [address] [phone] Silvia Hunt CNM Encounter for well woman exam with routine gynecological exam (Primary Dx); Screening breast examination; Screening for cervical cancer; History of uterine fibroid; Hirsutism; Screen for STD (sexually transmitted disease); Vitamin D deficiency; Perianal wart from Last 3 Months Surgical History Surgery Date Site/Laterality Comments UTERINE FIBROID EMBOLIZATION 08/10/2021 - 08/09/2022 OTHER SURGICAL HISTORY 08/10/2018 - 08/09/2019 Left knee / acl ( [id number]) Medical History Medical History Date Comments Adhd Family History Medical History Relation Name Comments Asthma Mother Diabetes Mother Cirrhosis Paternal Grandfather Lung cancer Paternal Grandmother No Known Problems Sister 1 No Known Problems Sister 2 No Known Problems Sister 3 Breast cancer Neg Hx Ovarian cancer Neg Hx Relation Name Status Comments Brother Alive Father murdered 2021 Maternal Grandfather Maternal Grandmother Mother Alive Paternal Grandfather Paternal Grandmother Sister 1 Alive Sister 2 Alive Sister 3 Alive Social History Tobacco Use Types Packs/Day Years Used Date Smoking Tobacco: Every Day Cigarettes Smokeless Tobacco: Never Tobacco Cessation:Ready to Q uit: Yes; Counseling Given: Yes Comments:Pharmocotherapy by PCP Alcohol Use Standard Drinks/Week Comments Yes 0 (1 standard drink = 0.6 oz pur e alcohol) socially Comments No Sex and Gender Information Value Date Recorded Sex Assigned at Not on file Legal Sex Female 11:07 AM EDT Gender Identity Not on file Sexual Orientation Not on file 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 Not on file Not on file Obstetrics History Para Term AB IAB SAB Ectopic Multiple Livin g Live Births 0 0 0 0 0 0 0 0 0 0 0 Last Filed Vital Signs Vital Sign Reading Time Taken Comments Blood Pressure 126/86 09/21/2024 10:23 AM EST Pulse 80 09/21/2024 10:23 AM EST Temperature - - Respiratory Rate - - Oxygen Saturation - - Inhaled Oxygen Concentration - - Weight 107 kg (235 lb) 09/21/2024 10:23 AM EST Height 170.2 cm (5' 7 ) 09/21/2024 10:23 AM EST Body Mass Index 36.81 09/21/2024 10:23 AM EST Plan of Treatment Health Maintenance Due Date Last Done Comments Breast Cancer Screening 1984 Hepatitis A Vaccines (1 of 2 - Risk 2-dose series) 2003 Hepatitis B Vaccines (1 of 3 - 19+ 3-dose series) 2003 Pneumococcal Vaccine: Pediatrics (0 to 5 Years) and At-Risk Patients (6 to 64 Years) (1 of 2 - PCV) 2003 Cervical Cancer Screening: HPV 2005 Cholesterol Screening (Lipid Panel) 03/04/2024 Depression Screening 03/04/2024 HIV Screening 03/04/2024 Hepatitis C Screening 03/04/2024 Social Influencers of Health Screening 03/04/2024 COVID-19 Vaccine (1 - 2023-2 5 season) 2024 Influenza Vaccine (#1) 2024 , 05/19/2017 DTaP,Tdap,and Td Vaccines (2 - Td or Tdap) 09/05/2027 09/05/2017 HIB Vaccines Aged Out No longer eligi [...] patient's age to complete this topic Meningococcal B Vacine Aged Out No lo nger eligible based on patient's age to complete this topic RSV Immunization Patients Under 20 months Aged Out No longer eligible b ased on patient's age to complete this topic Varicella Vaccines Aged Out No longer eligible based on patient's age to complete this topic Procedures Procedure Name Priority Date/Time Associated Diagnosis Comments CHLAMYDIA TRACHOMATIS AND NEISSERIA GONORRHOEAE PCR Routine 09/21/2024 11:32 AM EST Encounter for well woman exam with routine gynecological exam Screen for STD (sexually transmitted disease) LUTEINIZING HORMONE Routine 09/21/2024 1 1:23 AM EST Encounter for well woman exam with routine gynecological exam Hirsutism FOLLICLE STIMULATING HORMONE Routine 09/21/2024 11:23 AM EST Encounter for well woman exam with routine gynecological exam Hirsutism from Last 3 Months Results * Chlamydia trachomatis and Neisseria gonorrhoeae molecular study (09/21/2024 11:32 AM EST) Neisseria gonorrhoeae PCR Negative Negative LAB MOLECULAR DIAGNOSTICS METHOD 09/22/2024 8:29 AM EST [facility] Chlamydia trachomatis PCR Negative Negative LAB MOLECULAR DIAGNOSTICS METHOD 09/22/2024 8:29 AM EST [facility] Swab Cervix uteri structure / Unknown Non-blood Collection / Unknown 09/21/2024 11:32 AM EST 09/21/2024 3:57 PM EST Silvia Hunt [facility] MICROBIOLOGY - GENERAL OR DERABLES Final Result Performing Organization Address [facility]/ZIP Co de Phone Number [facility] [address] [place] [address], * Luteinizing hormone (09/21/2024 11:23 AM EST) Luteinizing Hormone 2.8 See Comment mIU/mL LAB CHEMISTRY METHOD 09/21/2024 1:37 PM EST [facility] Blood Venous blood specimen / Unknown Venipuncture / Unknown 09/21/2024 11:23 AM EST 09/21/2024 12:45 PM EST Narrative [facility] - 09/21/2024 1:37 PM EST LH REFERENCE RANGES (MIU/ML) FEMALES NORMALLY MENSTRUATING: FOLLICULAR PHASE ??1.9 - 12.8 MIDCYCLE PEAK ?22.8 - 76.1 LUTEAL PHASE ?0.6 - 13.5 POSTMENOPAUSAL: ON HRT ?1.1 - ??52.4 UNTREATED ? 8.6 - ??61.8 Silvia Hunt [facility] BLOOD ORDERABLES Final Re sult Performing Organization Address [facility]/ZIP Co de Phone Number [facility] [address] [place] [address], * Follicle stimulating hormone (09/21/2024 11:23 AM EST) Follicle Stimulating Hormone 3.5 See Comment mIU/mL LAB CHEMISTRY METHOD 09/21/2024 1:38 PM EST [facility] Comment: [facility]SH REFERENCE RANGES (MIU/ML) FEMALES NORMALLY MENSTRUATING: FOLLICULAR PHASE ??2.3 - 12.6 MIDCYCLE PEAK ? 5.2 - 17.5 LUTEAL PHASE ?1.7 - ??9.5 POSTMENOPAUSAL: ON HRT ?5.9 - ??72.8 UNTREATED ?12.7 - 132.2 Blood Venous blood specimen / Unknown Venipuncture / Unknown 09/21/2024 11:23 AM EST 09/21/2024 12:45 PM EST us Silvia Hunt CN LAB BLOOD ORDERABLES Final Re sult [facility] [address] [place] [address], from Last 3 Months Insurance [facility] Care Teams Senior Technical Trainer Relationship Specialty Start Date End Date Mor Tilley MD [address] [place] [address] [facility] - General 12/02/23
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
--- OUTSIDE RECORDS SUMMARY | 2024-09-22 16:27 | XMS_ITS | Encounter Summary ---
Author Organization [employer] Address [address] [place] [address] Care Team Providers Care Agile Test Lead Name Role Phone Mor Tilley MD Primary Care Provider [phone] Reason for Referral * Imaging (Routine) - Pending Review Specialty Diagnoses / Procedures Referred By Contac t Referred To Contact Radiology Diagnoses Encounter for well woman exam with routine gynecological exam History of uterine fibroid Procedures US Pelvis Non OB Complete w Transvaginal Silvia Hunt CNM [address] [place] [address] Phone: tel: fax: [address] [phone] Phone: tel: Referral ID Status Reason Start Date Expiration Date V isits Requested Visits Authorized [id number] Pending Review 09/21/2024 09/21/2025 1 1 Reason for Visit * Reason Comments Gynecologic Exam New pt ANNUAL Encounter Details Date Type Department Care Team (Latest Contact Info) Description 09/21/2024 10:30 AM EST Office Visit Obstetrics & Gynecology - [address] [phone] Silvia Hunt CNM [address] [place] [address] Encounter for well woman exam with routine gynecological exam (Primary Dx); Screening breast examination; Screening for cervical cancer; History of uterine fibroid; Hirsutism; Screen for STD (sexually transmitted disease); Vitamin D deficiency; Perianal wart Social History Tobacco Use Types Packs/Day Years [...] file Not on file Not on file documented as of this encounter Last Filed Vital Signs Vital Sign Reading [...] Mass Index 36.81 09/21/2024 10:23 AM EST documented in this encounter Patient Instructions * Attachments The following attachments cannot be sent through Care Everywhere. * Mammogram (Vietnamese) * Natural Family Planning: General Info (Vietnamese) documented in this encounter Ordered Prescriptions Prescription Sig Dispense Quantity Refills Last Filled Start Date End Date vitamin iron fum-folic acid 27-0.8 mg per tablet Take 1 tablet by mouth 1 (one) time each day. 90 tablet 3 09/21/2024 09/21/2025 documented in this encounter Progress Notes * Silvia Hunt CNM - 09/21/2024 10:30 AM EST La proxima isai en radiology sera en: Radiology Department- [address] [phone] option #2 Please call to schedule this appointment Por favor llama por un isai por jocelyn sonogram * Maegan Ortiz MA - 09/21/2024 10:30 AM EST New pt annual exam Amita * Silvia Hunt, NICHELLEM - 09/21/2024 10:30 AM EST Chief Complaint Patient presents with Gynecologic Exam New pt ANNUAL Sherry Mansfield 1985 AGE 39 y.o. Presents today for ANNUAL LEAVE SPECIALIST exam. She is new to the office ( from [place]) and here to establishcare. PCP in [facility] She has the following concerns : 1. Hx fibroid embolization , cont to have intermittent heavy periods and pelvic pressure - pelvic sono ordered 2. Would like to plan for - start pnv and pre-conception counseling 3. Concerned regarding PCOS, has noticed increased facial hairs - serum testing,medical management limited due to planning 4. Perianal warts- cryotherapy with previous LEAVE SPECIALIST, feels they are growing back- consider Aldara cream with insurance approval 5. 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 Would like to plan for with partner of 15 yrs A provider reviewed the following portions of the patient's chart in this encounter and updated as appropriate: Tobacco Meds Med Hx Surg Hx Fam Hx Soc Hx ROS GENERAL: No malaise, significant weight loss or fever HEENT: No changes in hearing or vision, nose bleeds or other nasal problems NECK: No lumps, goiter, pain or significant neck swelling RESPIRATORY: No cough, wheezing or shortness of breath CARDIOVASCULAR: No chest pain, leg swelling or palpitations BREAST: no lumps, discharge, pain or change in skin GI: No abdominal discomfort, blood in stools or black stools/ negative for change in bowel habits. : No dysuria, frequency or incontinence LEAVE SPECIALIST: See HPI MUSCULOSKELETAL: No joint pain or swelling, back pain, or muscle pain. SKIN: No lesions, rash or itching PSYCH: See HPI/ med regime reviewed HEMATOLOGY/LYMPHOLOGY No prolonged bleeding, easy bruisability or swollen nodes Objective Visit Vitals BP 126/86 Pulse 80 Ht 1.702 m (67 ) Wt 107 kg (235 lb) LMP 09/03/2024 (Exact Date) BMI 36.81 kg/m?? OB Status Having periods Smoking Status Every Day BSA 2.17 m?? APPEARANCE: Alert and in no acute distress, healthy, cooperative, hirsutism LUNG: Assessment: No increased work of breathing or signs of respiratory distress BREAST: normal without suspicious masses, skin or nipple changes or axillary nodes, symmetric fibrous changes in both upper outer quadrants, and self-exam is taught and encouraged. ABDOMEN: soft, non-tender, without organomegaly or palpable masses LYMPHATICS: no inguinal adenopathy LEAVE SPECIALIST: Normal external genitalia and urethra Vagina without abnormality or discharge Normal cervix Uterus bulky, mobile, non tender, Normal adnexa without tenderness RECTAL: perianal warts , most ar <1mm and on at 1 oclock 2mm size BACK: No pain to palpation with good flexion and extension EXTREMITIES: Extremities warm and well perfused without cyanosis, or edema NEURO: Awake, alert and oriented x 3 SKIN: Skin color, texture, turgor normal. No rashes or lesions. Multiple tattoos This is to document that Sherry Mansfield was given the opportunity to have a shipping/receiving manager present during a sensitive examination at today's visit. She declines this offer of a shipping/receiving manager. ASSESSMENT /PLAN Encounter Diagnoses Name Primary? Encounter for well woman exam with routine gynecological exam Yes Screening breast examination Screening for cervical cancer History of uterine fibroid Hirsutism Screen for STD (sexually transmitted disease) Vitamin D deficiency Perianal wart Orders Placed This Encounter Procedures Chlamydia trachomatis and Neisseria gonorrhoeae molecular study US Pelvis Non OB Complete w Transvaginal Follicle stimulating hormone Testosterone, total and bioavailable Luteinizing hormone Pap smear During the visit, the following areas of concern were addressed: Monitoring of the menstrual cycle Preconceptional counseling, including assuring a diet with sufficient folic acid or supplementationprior to conception, avoidance of alcohol, smoking or other harmful medications or drugs Regular exercise Healthy lifestyle Breast self-examination on a regular basis Smoking cessation Substance Use Domestic Violence Regular gynecologic examinations and frequency of Pap smears Importance of yearly mammography after age 40 (earlier if first-degree relative with breast cancer at a younger age) Family and personal history of cancer reviewed. Based on this evaluation, neither BRCA nor Gibbons testing are indicated. the patient is overweight. Approaches towards weight loss are discussed, including burning more calories than one takes in by frequent, small meals, portion control, avoiding eating before bedtime, regular exercise with an emphasis on duration rather than intensity , strength training exercise RTO one year or sooner prn Silvia Hunt CNM Note about provider documentation: If you are the patient named in this chart and are reviewing your medical notes, please note that medical documentation is often written with abbreviations and medical terminology, and directed for other providers who may be involved in your care as well. Documentation is critical to record what has happened, what test were ordered, and how they are interpreted w ith the resulting diagnoses. These notes have been made available for patient review but not specifically written for the patient. Important health information is always given to my patients and clinical instructions. Please review your after visit summary and/or contact our clinical staff if you have any questions. documented in this encounter Plan of Treatment Pending Results Name Type Priority Associated Diagnoses Date /Time Pap smear Pathology and Cytology Routine Encounter for well woman exam with routine gynecological exam Screening for cervical cancer 09/21/2024 11:11 AM EST Testosterone, total and bioavailable Lab Routine Encounter for well woman exam with routine gynecological exam Hirsutism 09/21/2024 11:23 AM EST HPV with reflex genotype Lab Routine Encounter for well woman exam with routine gynecological exam Screening for cervical cancer 09/21/2024 11:11 AM EST Scheduled Orders Name Type Priority Associated Diagnoses Orde r Schedule US Pelvis Non OB Complete w Transvaginal Imaging Routine Encounter for well woman exam with routine gynecological exam History of uterine fibroid Expected: 09/21/2024, Expires: 09/21/2025 Testosterone, total and bioavailable Lab Routine Encounter for well woman exam with routine gynecological exam Hirsutism 1 Occurrences starting 09/21/2024 until 09/21/2025 documented as of this encounter Procedures Procedure Name Priority Date/Time Associated Diagnosis Comments CHLAMYDIA TRACHOMATIS AND NEISSERIA GONORRHOEAE PCR Routine 09/21/2024 11:32 AM EST Encounter for well woman exam with routine gynecological exam Screen for STD (sexually transmitted disease) documented in this encounter Results * Chlamydia trachomatis and Neisseria gonorrhoeae molecular study (09/21/2024 11:32 AM EST) Neisseria gonorrhoeae PCR Negative Negative LAB MOLECULAR DIAGNOSTICS METHOD 09/22/2024 8:29 AM EST [facility] Chlamydia trachomatis PCR Negative Negative LAB MOLECULAR DIAGNOSTICS METHOD 09/22/2024 8:29 AM EST [facility] Swab Cervix uteri structure / Unknown Non-blood Collection / Unknown 09/21/2024 11:32 AM EST 09/21/2024 3:57 PM EST Silvia STEWARD LAB MICROBIOLOGY - GENERAL OR DERABLES Final Result Performing Organization Address [facility]/ZIP Co de Phone Number [facility] [address] [place] [address], * Luteinizing hormone (09/21/2024 11:23 AM EST) Luteinizing Hormone 2.8 See Comment mIU/mL LAB CHEMISTRY METHOD 09/21/2024 1:37 PM EST [facility] Blood Venous blood specimen / Unknown Venipuncture / Unknown 09/21/2024 11:23 AM EST 09/21/2024 12:45 PM EST Narrative [facility] - 09/21/2024 1:37 PM EST LH REFERENCE RANGES (MIU/ML) FEMALES NORMALLY MENSTRUATING: FOLLICULAR PHASE ??1.9 - 12.8 MIDCYCLE PEAK ?22.8 - 76.1 LUTEAL PHASE ?0.6 - 13.5 POSTMENOPAUSAL: ON HRT ?1.1 - ??52.4 UNTREATED ? 8.6 - ??61.8 us Silvia STEWARD LAB BLOOD ORDERABLES Final Re sult Performing Organization Address City/[facility]/ZIP Co de Phone Number [facility] [address] [place] [address], [place] [phone] * Follicle stimulating hormone (09/21/2024 11:23 AM EST) Follicle Stimulating Hormone 3.5 See Comment mIU/mL LAB CHEMISTRY METHOD 09/21/2024 1:38 PM EST [facility] Comment: [facility]SH REFERENCE RANGES (MIU/ML) FEMALES NORMALLY MENSTRUATING: FOLLICULAR PHASE ??2.3 - 12.6 MIDCYCLE PEAK ? 5.2 - 17.5 LUTEAL PHASE ?1.7 - ??9.5 POSTMENOPAUSAL: ON HRT ?5.9 - ??72.8 UNTREATED ?12.7 - 132.2 Blood Venous blood specimen / Unknown Venipuncture / Unknown 09/21/2024 11:23 AM EST 09/21/2024 12:45 PM EST Silvia Hunt [facility] BLOOD ORDERABLES Final Re sult [facility] [address] [place] [address], documented in this encounter Visit Diagnoses Diagnosis Encounter for well woman exam with routine gynecological exam- Primary Screening breast examination Other screening breast examination Screening for cervical cancer Screening for malignant neoplasm of the cervix History of uterine fibroid Hirsutism Screen for STD (sexually transmitted disease) Screening examination for venereal disease Vitamin D deficiency Perianal wart documented in this encounter Historical Medications * This list may reflect changes made after this encounter. cholecalciferol (VITAMIN D-3) 50 mcg (2,000 unit) tablet Take 1 tablet (2,000 Units total) by mouth 1 (one) time each day. hydrOXYzine HCL (ATARAX) 25 mg tablet 09/20/2024 omeprazole (PriLOSEC) [address] capsule 09/12/2024 sulfamethoxazole- trimethoprim (BACTRIM DS,SEPTRA DS) 800-160 mg per tablet 09/15/2024 buPROPion SR (WELLBUTRIN SR) 100 mg 12 hr tablet 09/20/2024 added in this encounter Care Teams Agile Test Lead Relationship Specialty Start Date End Date Mor Tilley MD [address] [place] [address] PCP - General 12/02/23 documented as of this encounter
== END 2024-09-22 17:35 | disposition left against medical advice (07) ==
PROVIDERS: Registered Nurse Emergency; Emergency Provider Emergency Medicine
DX: R11.2 Nausea with vomiting, unspecified (principal); F17.210 Nicotine dependence, cigarettes, uncomplicated; R07.89 Other chest pain; Z03.818 Encounter for observation for suspected exposure to other biological agents ruled out; Z79.899 Other long term (current) drug therapy
CPT/HCPCS: 0241U; 80053; 83735; 85025; 93005; 99283

== ENCOUNTER → 2024-09-22 11:09 | Outpatient (BNV) | payer OTHER, SELFPAY | PROVIDERS: Visit Provider Internal Medicine Cardiovascular Disease | DX: R07.9 Chest pain, unspecified (principal) | CPT/HCPCS: 93010 ==

== ENCOUNTER 2024-11-18 21:34 | Emergency (ER) | payer OTHER, SELFPAY ==
--- NOTE | ~2024-11-18 | XR_ITS ---
CLINICAL HISTORY: trauma 3 views nasal bones Comparison: None Findings: No fractures or dislocations. The visualized sinuses and mastoids are clear. IMPRESSION: Normal nasal bones This document has been electronically signed by: Mathew Villagomez MD on 11/19/2024 00:27:24
[2024-11-18 21:35] VITALS: BP 139/85; PULSE 76; RESP 20; TEMP 36.4; O2SAT 99; BMI 36.0
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
--- OUTSIDE RECORDS SUMMARY | 2024-11-18 21:47 | XMS_ITS | Continuity of Care Document ---
Author Organization [facility] Address [address] [facility] [address] [place] [address] Phone Care Team Providers Care Fixture Builder Name Role Phone Collin Barraza MD Unavailable [...] Diagnoses Date Provider Providers Copied on Encounter [facility], [address] [place] [address], [id number] , tel:[phone] [facility] No Information 2 Madi Polanco. [address] [place] [address], [address], [id number] , [place]. tel:[phone] Office/outpa tient visit est [facility], [address] [place] [address], [id number] , tel:[phone] [facility] Leiomyoma of uterus, unspecifiedLeiomyoma of uterus, unspecified 2 Chip Polanco. [address] [place] [address], [address], [address], [place]. tel:[phone] Referring Provider: Collin Saunders, [address] [place] [address], [address]. tel:[phone] [facility], [address] [place] [address], [id number] , [place] tel:[phone] [facility] 2 Madi Polanco. [address] [place] [address], [id number] , [place]. tel:[phone] Referring Provider: Collin Saunders, [address] [place] [address], [address]. tel:[phone] [facility], [address] [place] [address], [id number] , tel:[phone] [facility] No Information 2 Chip Polanco. [address] [place] [address], [address], [place], [address], . tel:[phone] Office/outpa tient visit [facility], [address] [place] [address], [id number] , tel:[phone] [address] Leiomyoma of uterus, unspecifiedLeiomyoma of uterus, unspecified 2 Chip Polanco. [address] [place] [address], [facility] [address], [place], [facility], . tel:[phone] Referring Provider: Collin Saunders, [address] [place] [address] [place] [address], [facility]. tel:[phone] As per patient privacy policy some of the clinical information may not be visible. Family History Family Member Type Diagnosis Age At Onset No Information Payers Payer name Insurance type Covered republican ID Authoriza tion(s) [employer] Administ[employer] CI [id number] Social History Type Description Quantity Date Captured Comments Sex Female Smoking Status No Information Gender Identity Female Chief Complaint And Reason For Visit No Information Reason For Referral Reason For Referral No Information Plan Of Treatment Date Type Action Status Future Order: Radiology Order Lo wer Body Flouroscopy ([id number]), Ordered on: Ordered Future Order: Lab Order [...]
[2024-11-18] MEDS: Acetaminophen 325 MG TABLET 975 MG PO (22:24)
--- NOTE | 2024-11-18 23:23 | MHC.EDTECH ---
assumed care of pt @2766
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
[2024-11-19 00:29] VITALS: RESP 18
[2024-11-19 00:48] VITALS: BP 128/72; PULSE 66; RESP 18; TEMP 36.6; O2SAT 96
== END 2024-11-19 00:57 | disposition home or self-care (01) ==
PROVIDERS: Emergency Provider Internal Medicine
DX: S00.83XA Contusion of other part of head, initial encounter (principal); R51.9 Headache, unspecified; Y04.2XXA Assault by strike against or bumped into by another person, initial encounter; Y93.89 Activity, other specified; Y92.238 Other place in hospital as the place of occurrence of the external cause; Y99.8 Other external cause status; Z79.899 Other long term (current) drug therapy
CPT/HCPCS: 70160; 99283

== ENCOUNTER → 2024-11-18 23:32 | Outpatient (BNV) | payer OTHER, SELFPAY | PROVIDERS: Emergency Provider Internal Medicine; Visit Provider Radiology Diagnostic Radiology | DX: S09.92XA Unspecified injury of nose, initial encounter (principal) | CPT/HCPCS: 70160 ==

== ENCOUNTER → 2024-11-21 15:02 | Outpatient (BNVA) | payer OTHER, SELFPAY | PROVIDERS: Visit Provider Physician Assistant Medical | DX: Z13.89 Encounter for screening for other disorder (principal) | CPT/HCPCS: 99203 ==

== ENCOUNTER → 2024-11-25 14:53 | Outpatient (BNVA) | payer OTHER, SELFPAY | PROVIDERS: Visit Provider Physician Assistant Medical | DX: Z13.89 Encounter for screening for other disorder (principal) | CPT/HCPCS: 99213 ==

== ENCOUNTER 2024-12-12 13:11 | Outpatient (AMB) | payer OTHER, SELFPAY ==
[2024-12-12 13:13] VITALS: BP 118/80; PULSE 75; O2SAT 99; BMI 36.5
--- NOTE | 2024-12-12 13:13 | MHC.PC.OV ---
Vital Signs 12/12/24 13:13 Height 5 ft 7 in Weight 233 lb 6 oz BMI 36.5 BP 118/80 Blood Pressure Location Lt brachial Position Sitting Pulse 75 Pulse Source Pulse Oximeter Pulse Oximetry (%) 99 Oxygen Delivery Method Room Air Intake Visit Reasons: depression/gerd Client Representative Required: No Accompanied by: Self / Same As Patient Allergies No Known Allergies Allergy (Verified 12/12/24 13:49) Medication List - Last Reconciled 12/12/24 by MATILDE Keene acetaminophen 500 mg PO Q6H PRN bupropion HCl XL (Wellbutrin XL) 150 mg PO QAM cholecalciferol (vitamin D3) 25 mcg PO DAILY cyclobenzaprine 10 mg PO TID PRN ibuprofen 600 mg PO TID PRN magnesium oxide 400 mg PO DAILY ondansetron 4 mg PO Q8H PRN sumatriptan succinate 50 mg PO ONCE PRN Tobacco use date assessed: 12/12/24 Dental Screening Dental Screen Date: 12/12/24 Did you have a dental visit in the last 12 months?: No Did you have a dental problem in the last 6 months where you did not have access to dental care?: No Was dental information given to patient?: Patient has dentist HPI depression/gerd HPI Details The patient is a 39-year-old female presenting with issues regarding heartburn and foot pain. She manages her gastroesophageal reflux disease by taking medication before meals as needed, which has successfully controlled her symptoms. For approximately a year, she has experienced severe pain in the joints of her big toes, potentially related to bunions, which she describes as affecting her ability to walk. 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 She seeks to address these foot issues during her visit. Additionally, she is managing anxiety and depression-like symptoms, linked to environmental changes and sunlight exposure, with plans to adjust her therapeutic care for better comfort and effectiveness. [facility] Medical History Smoker Depression Bronchitis Social History Housing: House Patient Tobacco Use Status: Current everyday Tobacco user Cigarette Packs Per Day: 0.5 Cigarettes Per Day: 10 e-Cigarette/Vaping Use: Never Used service: No Current occupational status: employed Cognitive needs: No Hearing needs: No Vision needs: No Questionnaire PHQ-9 Over the last 2 weeks, how often have you been bothered by any of the following problems? 1. Little interest or pleasure in doing things: not at all 2. Feeling down, depressed, or hopeless: not at all 3. Trouble falling or staying asleep, or sleeping too much: not at all 4. Feeling tired or having little energy: not at all 5. Poor appetite or overeating: not at all 6. Feeling bad about yourself - or that you are a failure or have let yourself or your family down: not at all 7. Trouble concentrating on things, such as reading the newspaper or watching television: not at all 8. Moving or speaking so slowly that other people could have noticed. Or the opposite - being so fidgety or restless that you have been moving around a lot more than usual: not at all 9. Thoughts that you would be better off or of hurting yourself in some way: not at all Total score: 0 Depression Screening Interpretation: Negative Depression Screening Done: Yes Source: Developed by Drs. James Lang, Tabitha De, Guillermo Spencer and colleagues, with an educational jayro from [employer]. Thrive Questionnaire Date Thrive assessed: 12/12/24 I am a: Patient What is your living situation today?: I have a steady place to live Within the past 12 months, did the food you bought not last and you didn't have the money to get more?: Sometimes True Within the past 12 months, did you worry whether your food would run out before you got money to buy more?: Sometimes True Do you have trouble paying for medicines?: Yes Do you have trouble getting transportation to medical appointments?: No Do you have trouble paying your heating and electricity bill?: Yes Do you have trouble taking care of your child, family member or friend?: Yes Do you have trouble with day-to-day activities such as bathing, preparing meals, shopping, managing finances, etc.?: No Are you currently unemployed and looking for a job?: No Are you interested in more education?: No Please select the resources that you would like help with: None Currently or been in a relationship where the following occur: I choose not to answer THRIVE Score: 3 AUDIT C Alcohol Use Questionnaire (AUDIT-C) 1. How often do you have a drink containing alcohol?: Monthly or less 2. How many drinks containing alcohol do you have on a typical day when you are drinking?: 1 or 2 3. How often do you have six or more drinks on one occasion?: Never Total Score: 1 MATT-7 AMB Questionnaire MATT-7 Date MATT - 7 assessed: 12/12/24 Feeling nervous, anxious, or on edge: 0 = Not at all Not being able to stop or control worryin = Not at all Worrying too much about different things: 0 = Not at all Trouble relaxin = Not at all Being so restless that it is hard to sit still: 0 = Not at all Becoming easily annoyed or irritable: 0 = Not at all Feeling afraid as if something awful might happen: 0 = Not at all Total MATT-7 score (0-4 normal; 5-9 mild; 10-14 moderate; 15-21 severe): 0 Source: Developed by Drs. James Lang, Tabitha De, Guillermo Spencer and colleagues, with an educational jayro from [employer]. Review of Systems Const Denies headache(s) Eyes Denies loss of vision ENT Denies dizziness, Denies headache(s) and Denies sore throat Card Denies chest pain, Denies leg edema and Denies lightheadedness Resp Denies cough, Denies hemoptysis and Denies wheezing GI Denies abdominal pain, Denies melena, Denies constipation, Denies diarrhea and Denies vomiting Denies urinary frequency, Denies dysuria and Denies urinary urgency Musc Reports arthralgias ( MTP joints), Denies joint swelling, Denies numbness and Denies tingling Skin/Breast Reports other (toenail fungus) Neuro Denies dizziness, Denies headache(s), Denies loss of vision, Denies numbness and Denies tingling Psych Denies anxiety, Reports depression and Denies panic attacks Viktor/Lymph Denies easy bleeding and Denies easy bruising Aller/Immun Denies wheezing Physical exam (Primary Care) Vital Signs: Last Vital Signs Pulse 75 12/12/24 13:13 BP 118/80 12/12/24 13:13 Pulse Ox 99 12/12/24 13:13 Oxygen Delivery Method Room Air 12/12/24 13:13 BMI result Body Mass Index 36.5 Tobacco/Smoking Status: Tobacco use Status Tobacco use date assessed 12/12/24 12/12/24 13:25 Patient Tobacco Use Status Current everyday Tobacco 12/12/24 13:25 e-Cigarette/Vaping Use Never Used 12/12/24 13:25 PHQ-9: PHQ-9 Score PHQ-9: Total score 0 12/12/24 13:56 Depression Screening Interpretation: Negative Thrive Assessment: Date of Thrive Assessment Date Thrive assessed 12/12/24 12/12/24 13:25 Currently or been in a relationship where the following occur: I choose not to answer Const General: healthy appearing, no acute distress, alert and awake Nutritional Appearance: well nourished Orientation/consciousness: oriented to person, oriented to place and oriented to time HENMT Ears: TM's normal bilaterally General nose exam: Normal nasal mucous membranes and turbinates present Eyes Conjunctivae: conjunctivae normal Sclerae: sclerae normal Pupils: Equal, round and reactive pupils present Neck Neck: Yes no lymphadenopathy and Yes no JVD Thyroid: Thyroid normal Carotids: no bruits Resp Effort & Inspection: normal respiratory effort and not tachypneic Auscultation: no crackles, no rales, no rhonchi and no wheezes Cardio Rate: regular rate Rhythm: regular rhythm Heart sounds: no murmurs and normal S1 and S2 GI Palpation (GI): Soft to palpation, nontender, no hepatomegaly and no splenomegaly Auscultation: normal bowel sounds Skin General skin exam: dry skin Nails: other (toenail fungus) Neuro General: oriented to person, oriented to place and oriented to time Cranial nerves: Yes Equal, round and reactive pupils present Gait exam (Neuro): Normal gait present Extrem Right upper extremity: full ROM Left upper extremity: full ROM Right lower extremity: full ROM and foot; no edema Left lower extremity: full ROM; no edema Ankle/foot/toe images: 1. right MTP JOINT pain Psych Mental Status: mental status grossly normal Speech and movement: Normal speech and movement present Affect: normal affect Attitude: cooperative Thought process: Normal thought process present Results Reviewed Results Reviewed: Laboratory Tests 02/13/25 11:17 WBC 8.5 RBC 5.19 Hgb 16.5 H Hct 45.5 MCV 87.7 RDW 12.8 Plt Count 185 MPV 10.8 Sodium 134 L Potassium 4.0 Chloride 105 Carbon Dioxide 19 L Anion Gap 14 BUN 11 Creatinine 0.79 Estim Creat Clear Calc 114.6 Estimated GFR > 60 Random Glucose 102 Calcium 9.2 Magnesium 2.0 Total Bilirubin 1.2 H AST 27 ALT 31 Alkaline Phosphatase 61 Total Protein 8.1 H Albumin 4.6 Coding Level of Care Code Est Pt Level 3 (95134) Diagnoses Elevated LDL cholesterol level E78.00 Reactive depression F32.9 Depression Type: reactive depression Vitamin D deficiency E55.9 Elevated alanine aminotransferase (ALT) level R74.01 Pain of great toe, unspecified laterality M79.676 Laterality: unspecified laterality Toenail fungus B35.1 Gastroesophageal reflux disease, unspecified whether esophagitis present K21.9 Esophagitis presence: esophagitis presence not specified Smoker F17.200 Time Spent (min) 33 Assessment & Plan Assessment & Plan (1) Elevated LDL cholesterol level: Code(s): E78.00 - Pure hypercholesterolemia, unspecified Category: Medical Plan: Total cholesterol 246, LDL 166, discussed with patient about making dietary changes/lifestyle modifications Patient reports that she is having difficulty cutting down on eating rice but she is determined on making these changes The patient did not complete scheduled labs-encouraged to get these pietro (2) Depression: Code(s): F32.A - Depression, unspecified Category: Medical Qualifiers: Depression Type: reactive depression Qualified Code(s): F32.9 - Major depressive disorder, single episode, unspecified Plan: The was restarted on Wellbutrin and she was referred to psychiatrist. Reports that she was connected to [facility] Therapist-reports that her therapist is really good, but she has a heavy accent and she does not know how to ask for another therapist without offending her. She has been doing well on current tx. She reports still smoking but cutting down Denies SI/HI (3) Vitamin D deficiency: Code(s): E55.9 - Vitamin D deficiency, unspecified Category: Medical Plan: Vitamin D 9.3 , continue cholecalciferol 25 mcg daily The patient did not complete scheduled labs-encouraged to get them done pietro (4) Elevated alanine aminotransferase (ALT) level: Code(s): R74.01 - Elevation of levels of liver transaminase levels Category: Medical Plan: On previous lab: ALT 37, this is most likely due to the patient elevated cholesterol. Discussed with patient that lifestyle modification almost like correct her elevated liver enzyme Patient had labs drawn in the hospital that showed normal ALT. We will continue to monitor (5) Great toe pain: Code(s): M79.676 - Pain in unspecified toe(s) Category: Medical Qualifiers: Laterality: unspecified laterality Qualified Code(s): M79.676 - Pain in unspecified toe(s) Plan: right foot xray ordered and uric acid at to scheduled labs (6) Toenail fungus: Code(s): B35.1 - Tinea unguium Category: Medical Plan: Patient was referred to podiatry (7) GERD (gastroesophageal reflux disease): Code(s): K21.9 - Gastro-esophageal reflux disease without esophagitis Category: Medical Qualifiers: Esophagitis presence: esophagitis presence not specified Qualified Code(s): K21.9 - Gastro-esophageal reflux disease without esophagitis Plan: Reinforced dietary restriction. Patient reports that she used Omeprazole OTC as needed when having heartburn Explained to the patient that this medication has to be taken on an empty stomach prior to getting heartburn for it to work (8) Smoker: Code(s): F17.200 - Nicotine dependence, unspecified, uncomplicated Category: Social Hx Plan: She is currently smoking a half a pack/day Reports that Wellbutrin helped her to quit in the past Plan Patient to follow up in 3 months. Please get blood work done a week before follow up appointment Orders: Orders Comprehensive [place]. Panel Fast 3 Months E55.9 - Vitamin D deficiency, unspecified, E78.00 - Pure hypercholesterolemia, unspecified, F32.9 - Major depressive disorder, single episode, unspecified, F41.9 - Anxiety disorder, unspecified, R74.01 - Elevation of levels of liver transaminase levels Lipid Panel 3 Months E55.9 - Vitamin D deficiency, unspecified, E78.00 - Pure hypercholesterolemia, unspecified, F32.9 - Major depressive disorder, single episode, unspecified, F41.9 - Anxiety disorder, unspecified, R74.01 - Elevation of levels of liver transaminase levels Uric Acid 12/12/24 M79.676 - Pain in unspecified toe(s) XR foot RT min 3V 12/12/24 M79.676 - Pain in unspecified toe(s) Complete Blood Count Auto Diff 3 Months E55.9 - Vitamin D deficiency, unspecified, E78.00 - Pure hypercholesterolemia, unspecified, F32.9 - Major depressive disorder, single episode, unspecified, F41.9 - Anxiety disorder, unspecified, R74.01 - Elevation of levels of liver transaminase levels TSH reflex Free T4 3 Months E55.9 - Vitamin D deficiency, unspecified, E78.00 - Pure hypercholesterolemia, unspecified, F32.9 - Major depressive disorder, single episode, unspecified, F41.9 - Anxiety disorder, unspecified, R74.01 - Elevation of levels of liver transaminase levels UA CC w/rflx Micro + Cult 3 Months E55.9 - Vitamin D deficiency, unspecified, E78.00 - Pure hypercholesterolemia, unspecified, F32.9 - Major depressive disorder, single episode, unspecified, F41.9 - Anxiety disorder, unspecified, R74.01 - Elevation of levels of liver transaminase levels Vitamin D 25-OH Total 3 Months E55.9 - Vitamin D deficiency, unspecified, E78.00 - Pure hypercholesterolemia, unspecified, F32.9 - Major depressive disorder, single episode, unspecified, F41.9 - Anxiety disorder, unspecified, R74.01 - Elevation of levels of liver transaminase levels Referrals Podiatry Referral B35.1 - Tinea unguium Medications: Refilled bupropion HCl XL 150 mg PO QAM 30 tabs 3RF bupropion HCl XL (Wellbutrin XL) 150 mg PO QAM 30 tabs 3RF
--- OUTSIDE RECORDS SUMMARY | 2024-12-12 14:33 | XMS_ITS | Continuity of Care Document ---
Author Organization [facility] Address [address] [facility] [address] [place] [address] Phone Care Team Providers Care Ob/Gyn Name Role Phone Collin Barraza MD Unavailable [...] Diagnoses Date Provider Providers Copied on Encounter [facility] [employer], [address] [place] [address], [id number] , tel:[phone] [facility] No Information 2 Madi Polanco. [address] [place] [address], [address], [id number] , [place]. tel:[phone] Office/outpa tient visit est [facility], [address] [place] [address], [id number] , tel:[phone] [facility] Leiomyoma of uterus, unspecifiedLeiomyoma of uterus, unspecified 2 Chip Polanco. [address] [place] [address], [address], [address], [place]. tel:[phone] Referring Provider: Collin Saunders, [address] [place] [address], [id number]. tel:[phone] [facility], [address] [place] [address], [id number] , [place] tel:[phone] [facility] 2 Madi Polanco. [address] [place] [address], [id number] , [place]. tel:[phone] Referring Provider: Collin Saunders, [address] [place] [address], [address]. tel:[phone] [facility], [address] [place] [address], [id number] , tel:[phone] [facility] No Information 2 Chip Polanco. [address] [place] [address], [address], [address], . tel:[phone] Office/outpa tient visit [facility], [address] [place] [address], [id number] , tel:[phone] [address] Leiomyoma of uterus, unspecifiedLeiomyoma of uterus, unspecified 2 Chip Polanco. [address] [place] [address], [facility] [address] [place], [place], [facility], . tel:[phone] Referring Provider: Collin Saunders, [address] [place] [address] [place] [address], [facility]. tel:[phone] As per patient privacy policy some of the clinical information may not be visible. Family History Family Member Type Diagnosis Age At Onset No Information Payers Payer name Insurance type Covered libertarian ID Authoriza tion(s) [employer] Administrators CI [id number] Social History Type Description Quantity Date Captured Comments Sex Female Smoking Status No Information Gender Identity Female Chief Complaint And Reason For Visit No Information Reason For Referral Reason For Referral No Information Plan Of Treatment Date Type Action Status Future Order: Radiology Order Lo wer Body Flouroscopy ([id number]), Ordered on: Ordered Future Order: Lab Order [...]
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
--- OUTSIDE RECORDS SUMMARY | 2024-12-12 14:33 | XMS_ITS | Clinical Summary ---
Author Organization [address] Address [address] [place] [phone] Phone Care Team Providers Care Geographic Information Systems Analyst Name Role Phone Mor Tilley MD Primary [...] mouth 1 (one) time each day. Active Active Problems Problem Noted Date Diagnosed Date Intramural, submucous, and subserous leiomyoma o f uterus 10/20/2024 Overview (10/20/2024): Noted on ultrasound 10/2024 3.1 x 4.3 x 2.8 cm calcified right anterior subserosal fibroid. 4.6 x 4.5 x 4.9 cm left posterior exophytic fibroid. 5.0 x 4.4 x 5.5 cm exophytic left fibroid of the lower uterine segment. Encounters Date Type Department Care Team Description 11/09/2024 3:00 PM EDT Office Visit [facility]st[facility]s [facility]ne[facility] [address] [place] [phone] Lou Gama DO Primary female infertility (Primary Dx); Fibroids, subserous 10/19/2024 4:56 PM EDT - 10/19/2024 11:59 PM EDT Hospital Encounter Radiology Department - [address] [phone] Encounter for well woman exam with routine gynecological exam; History of uterine fibroid Discharge Disposition: Home or Self Care 09/21/2024 10:30 AM EST Office Visit Obstetrics & Gynecology - [address] [phone] Silvia Hunt CNM Encounter for well woman [...] - 08/09/2019 Left knee / acl ( [phone]) Medical History Medical History Date Comments Adhd [...] Sign Reading Time Taken Comments Blood Pressure 129/84 11/09/2024 3:59 PM EDT Pulse 64 11/09/2024 3:59 PM EDT Temperature - - Respiratory Rate 18 11/09/2024 3:59 PM EDT Oxygen Saturation - - Inhaled Oxygen Concentration - - Weight 104 kg (230 lb) 11/09/2024 3:59 PM EDT Height 170.2 cm (5' 7 ) 11/09/2024 3:59 PM EDT Body Mass Index 36.02 11/09/2024 3:59 PM EDT Plan of Treatment Health Maintenance Due Date Last Done Comments Hepatitis A Vaccines (1 of 2 - Risk 2-dose series) 2003 Hepatitis B Vaccines (1 of 3 - 19+ 3-dose series) 2003 Pneumococcal Vaccine: Pediatrics (0 to 5 Years) and At-Risk Patients (6 to 64 Years) (1 of 2 - PCV) 2003 Cholesterol Screening (Lipid Panel) 03/04/2024 Depression Screening 03/04/2024 HIV Screening 03/04/2024 Hepatitis C Screening 03/04/2024 Social Influencers of Health Screening 03/04/2024 COVID-19 Vaccine (1 - 2023-2 5 season) 2024 Influenza Vaccine (Season Ended) 2025 06/21/2019, 05/19/2017 Breast Cancer Screening 09/16/2026 09/16/2024 DTaP,Tdap,and Td Vaccines (2 - Td or Tdap) 09/05/2027 09/05/2017 Cervical Cancer Screening: HPV 09/21/2029 09/21/2024 HIB Vaccines Aged Out No longer eligi [...] age to complete this topic Meningococcal B Vaccine Aged Out No l onger eligible based on patient's age to complete this topic RSV Immunization Patients Under 20 months Aged Out No longer eligible b ased on patient's age to complete this topic Varicella Vaccines Aged Out No longer eligible based on patient's age to complete this topic Procedures Procedure Name Priority Date/Time Associated Diagnosis Comments US PELVIS NON OB COMPLETE W TRANSVAGINAL Routine 10/19/2024 5:16 PM EDT Encounter for well woman exam with routine gynecological exam History of uterine fibroid CHLAMYDIA TRACHOMATIS AND NEISSERIA GONORRHOEAE PCR Routine 09/21/2024 11:32 AM EST Encounter for well woman exam with routine gynecological exam Screen for STD (sexually transmitted disease) LUTEINIZING HORMONE Routine 09/21/2024 1 1:23 AM EST Encounter for well woman exam with routine gynecological exam Hirsutism TESTOSTERONE, TOTAL AND BIOAVAILABLE Routine 09/21/2024 11:23 AM EST Encounter for well woman exam with routine gynecological exam Hirsutism FOLLICLE STIMULATING HORMONE Routine 09/21/2024 11:23 AM EST Encounter for well woman exam with routine gynecological exam Hirsutism PAP SMEAR Routine 09/21/2024 11:11 AM EST Encounter for well woman exam with routine gynecological exam Screening for cervical cancer HPV WITH REFLEX GENOTYPE Routine 09/21/2024 11:11 AM EST Encounter for well woman exam with routine gynecological exam Screening for cervical cancer MG MAMMO DIGITAL DIAGNOSTIC BILAT Routine 09/16/2024 8:16 AM EST from Last 3 Months Results * US Pelvis Non OB Complete w Transvaginal (10/19/2024 5:16 PM EDT) Anatomical Region Laterality Modality Body, Pelvis Ultrasound 10/20/2024 9:31 AM EDT Impressions 10/20/2024 9:49 AM EDT Fibroid uterus. -------- FINAL REPORT -------- Dictated By: Earlene Mcintosh Dictated Date: 10/20/2024 09:31 ET Assigned Physician: Earlene Mcintosh Reviewed and Electronically Signed By: Earlene Mcintosh Signed Date: 10/20/2024 09:49 ET Workstation ID: [id number] Transcribed By: Self Edit Transcribed Date: 10/20/2024 09:32 ET Narrative 10/20/2024 9:49 AM EDT US PELVIS NON OB COMPLETE W TRANSVAGINAL PELVIC ULTRASOUND History: ??Bulky uterus. History multi fibroids. Procedure: Real-time and color Doppler pelvic and transvaginal ultrasound. Comparison: None. FINDINGS: The study is limited because the patient's bladder was not well prepped. Patient's states she is unable to hold her urine. The uterus is markedly measures 8.8 x 4.7 x 4.4 x 9.5 cm contains 3 fibroids. ?? 3.1 x 4.3 x 2.8 cm calcified right anterior subserosal fibroid. 4.6 x 4.5 x 4.9 cm left posterior exophytic fibroid. 5.0 x 4.4 x 5.5 cm exophytic left fibroid of the lower uterine segment. Endometrial stripe measures 7 7 mm. No evidence of uterine or adnexal mass seen. ?? Transvaginal sonographic examination was performed for better evaluation of the adnexa. ?? Right ovary measures 3.6 x 2.2 x 2.4 cm for a volume of 10.0 cc. Left ovary measures 3.1 x 2.2 x 2.3 cm for a volume of 8.2 cc. ??No free fluid was demonstrated. Procedure Note Earlene Mcintosh MD - 10/20/2024 US PELVIS NON OB COMPLETE W TRANSVAGINAL PELVIC ULTRASOUND History: Bulky uterus. History multi fibroids. Procedure: Real-time and color Doppler pelvic and transvaginal ultrasound. Comparison: None. FINDINGS: The study is limited because the patient's bladder was not wellprepped. Patient's states she is unable to hold her urine. The uterus is markedly measures 8.8 x 4.7 x 4.4 x 9.5 cm contains 3fibroids. 3.1 x 4.3 x 2.8 cm calcified right anterior subserosal fibroid. 4.6 x 4.5 x 4.9 cm left posterior exophytic fibroid. 5.0 x 4.4 x 5.5 cm exophytic left fibroid of the lower uterine segment. Endometrial stripe measures 7 7 mm. No evidence of uterine or adnexal massseen. Transvaginal sonographic examination was performed for better evaluationof the adnexa. Right ovary measures 3.6 x 2.2 x 2.4 cm for a volume of10.0 cc. Left ovary measures 3.1 x 2.2 x 2.3 cm for a volume of 8.2 cc.No free fluid was demonstrated. IMPRESSION: Fibroid uterus. -------- FINAL REPORT -------- Dictated By: Earlene Mcintosh Dictated Date: 10/20/2024 09:31 ET Assigned Physician: Earlene Mcintosh Reviewed and Electronically Signed By: Earlene Mcintosh Signed Date: 10/20/2024 09:49 ET Workstation ID: [id number] Transcribed By: Self Edit Transcribed Date: 10/20/2024 09:32 ET Silvia Hunt CNM IMG US PROCEDURES Final Resul t * Chlamydia trachomatis and Neisseria gonorrhoeae molecular study (09/21/2024 11:32 AM EST) Neisseria gonorrhoeae PCR Negative Negative LAB MOLECULAR DIAGNOSTICS METHOD 09/22/2024 8:29 AM EST [facility] Chlamydia trachomatis PCR Negative Negative LAB MOLECULAR DIAGNOSTICS METHOD 09/22/2024 8:29 AM EST [facility] Swab Cervix uteri structure / Unknown Non-blood Collection / Unknown 09/21/2024 11:32 AM EST 09/21/2024 3:57 PM EST Silvia Hunt CNM LAB MICROBIOLOGY - GENERAL OR DERABLES Final Result [facility] [address] [place] [address], * (ABNORMAL) Testosterone, total and bioavailable (09/21/2024 11:23 AM EST) Testosterone Total LC/MS/MS 36.4 ng/dL 09/29/2024 12:05 PM EST [facility] Comment: ? Female: ?Premenopausal ?10.0 - 55.0 ?Postmenopausal ?7.0 - 40.0 Testosterone % Free+Weakly Bound 18.3(H) 3.0 - 18.0 % 09/29/2024 12:05 PM EST [facility] Comment: This test was developed and its performance characteristics determined by [facility]. It has not been cleared or approved by the Food and Drug Administration. Testosterone % Free+Weakly Bound 6.7 0.0 - 9.5 ng/dL 09/29/2024 12:05 PM EST [facility] Blood Venous blood specimen / Unknown Venipuncture / Unknown 09/21/2024 11:23 AM EST 09/21/2024 12:44 PM EST Narrative [facility] - 09/29/2024 12:05 PM EST Test(s) [id number], Total, LC/MS was developed and its performance characteristics determined by [facility]. It has not been cleared or approved by the Food and Drug Administration. Performed at: ??01 - [facility] ??[id number] Operations Support Manager: Melisa Mayer MD, Phone: ??[phone] us Silvia Hunt CNM LAB BLOOD ORDERABLES Final Re sult [facility] * Luteinizing hormone (09/21/2024 11:23 AM EST) Luteinizing Hormone 2.8 See Comment mIU/mL LAB CHEMISTRY METHOD 09/21/2024 1:37 PM EST [facility] Blood Venous blood specimen / Unknown Venipuncture / Unknown 09/21/2024 11:23 AM EST 09/21/2024 12:45 PM EST Narrative [facility] - 09/21/2024 1:37 PM EST LH REFERENCE RANGES (MIU/ML) FEMALES NORMALLY MENSTRUATING: FOLLICULAR PHASE ??1.9 - 12.8 MIDCYCLE PEAK ?22.8 - 76.1 LUTEAL PHASE ?0.6 - 13.5 POSTMENOPAUSAL: ON HRT ?1.1 - ??52.4 UNTREATED ? 8.6 - ??61.8 Silvia Hunt [facility] BLOOD ORDERABLES Final Re sult Performing Organization Address City/[facility]/ZIP Co de Phone Number [facility] [address] [place] [address], [place] [phone] * Follicle stimulating hormone (09/21/2024 11:23 AM EST) Follicle Stimulating Hormone 3.5 See Comment mIU/mL LAB CHEMISTRY METHOD 09/21/2024 1:38 PM EST [facility] Comment: FSH REFERENCE RANGES (MIU/ML) FEMALES NORMALLY MENSTRUATING: FOLLICULAR PHASE ??2.3 - 12.6 MIDCYCLE PEAK ? 5.2 - 17.5 LUTEAL PHASE ?1.7 - ??9.5 POSTMENOPAUSAL: ON HRT ?5.9 - ??72.8 UNTREATED ?12.7 - 132.2 Blood Venous blood specimen / Unknown Venipuncture / Unknown 09/21/2024 11:23 AM EST 09/21/2024 12:45 PM EST Silvia Hunt [facility] BLOOD ORDERABLES Final Re sult Performing Organization Address [facility]/ZIP Co de Phone Number [facility] [address] [place] [address], [place] [phone] * HPV with reflex genotype (09/21/2024 11:11 AM EST) HPV Negative Negative LAB MICROBIOLOGY METHOD 09/23/2024 1:09 PM [facility] Brushing/Spatula Cervix uteri structure / Unknown 09/21/2024 11:11 AM EST 09/22/2024 6:04 AM EST Silvia STEWARD LAB MOLECULAR DIAGNOSTICS ORD ERABLES Final Result [facility] [address] [place] [address], * Pap smear (09/21/2024 11:11 AM EST) Interpretation Negative for intraepithelial lesion or malignancy 09/26/2024 10:18 AM [facility] General Categorization Negative 09/26/2024 10:18 AM [facility] Other Findings Shift in elroy suggestive of bacterial vaginosis 09/26/2024 10:18 AM [facility] LMP 09/03/2024 09/26/2024 10:18 AM [facility] Specimen Adequacy Satisfactory for evaluation, endocervical/byers sformation zone component present 09/26/2024 10:18 AM [facility] Pap Methodology Liquid Based Pap Test 09/26/2024 10:18 AM [facility] Disclaimer The Pap test is a screening test which carries an inherent false negative rate. These test results should be correlated with the patient's clinical findings and history. This Pap test was processed using an automated screening system. Technical cytopathology services provided by [facility], at [address] [place] [id number] (CLIA # [id number]/Harmeet Cantrell MD, Manager Costing.) 09/26/2024 10:18 AM EST [facility] Console Pap Interpretation Reported 09/26/2024 10:18 AM EST [facility] Brushing/Spatula Cervix uteri structure / Unknown 09/21/2024 11:11 AM EST 09/22/2024 6:03 AM EST Silvia Hunt CNM LAB CYTOLOGY ORDERABLES Final Result [facility] [address] [place] [address], [place] [phone] * MG Mammo Digital Diagnostic bilat (09/16/2024 8:16 AM EST) Anatomical Region Laterality Modality Breast Bilateral Mammography Historical Provider MD DEE BI PROCEDURES Final R esult from Last 3 Months Insurance [employer] [facility] Care Teams Geographic Information Systems Analyst Relationship Specialty Start Date End Date Mor Tilley MD [address] [place] [address] PCP - General 12/02/23
== END 2024-12-12 14:14 | disposition home or self-care (01) ==
LOC: HO.HMCH 13:12
DX: E78.00 Pure hypercholesterolemia, unspecified (principal); F32.9 Major depressive disorder, single episode, unspecified; E55.9 Vitamin D deficiency, unspecified; R74.01 Elevation of levels of liver transaminase levels; M79.676 Pain in unspecified toe(s); B35.1 Tinea unguium; K21.9 Gastro-esophageal reflux disease without esophagitis; F17.200 Nicotine dependence, unspecified, uncomplicated

== ENCOUNTER → 2024-12-12 13:11 | Outpatient (BNVA) | payer OTHER, SELFPAY | DX: Z13.89 Encounter for screening for other disorder (principal) ==

== ENCOUNTER 2025-01-18 13:07 | Outpatient (AMB) | payer OTHER, SELFPAY ==
--- NOTE | 2025-01-18 13:35 | MHC.OFFVIS ---
Vital Signs 01/18/25 13:47 Height 5 ft 7 in Weight 235 lb BMI 36.8 BP 122/86 Blood Pressure Location Rt brachial Position Sitting Pulse 78 Pulse Source Pulse Oximeter Pulse Oximetry (%) 99 Oxygen Delivery Method Room Air Intake Visit Reasons: Melena Intake Note: New patient for eval of melena concern. CC; C.O. bloating, abd distention, GERD, melena + hematochezia. Pt reports chronic hx of hemorrhoids but states this is significantly different. Pt has actually noticed blood mixed in throughout the stool. Also reports R side Upper and Lower abd pain. No hx of colo or egd. Sustainable Products Marketing Manager Required: No Accompanied by: Self / Same As Patient Allergies No Known Allergies Allergy (Verified 03/16/25 11:51) HPI Comments Details: 39 y.o F with PMH of who is here blood in stools. Reprots for the last 4-5 months has been noticing a moderate amount of blood mixed in stools and also after defecation. Bowels are not painful. Has R sided abd cramping assoc with this. No unintentional weight loss. No fam hx of colon cancer. Smokes a pack a day but trying to quit. Also used to drink etOH heavily to cope with grandmothers but has cut down now drinking 2-3 times a week. [facility] Medical History (Updated 03/21/25 @ 13:04 by Yolanda Bauer RN) Palpitations Anxiety GERD (gastroesophageal reflux disease) Smoker Depression Bronchitis Surgical History (Updated 03/21/25 @ 13:07 by Yolanda Bauer RN) History of repair of anterior cruciate ligament Social History Housing: House Patient Tobacco Use Status: Current everyday Tobacco user Cigarette Packs Per Day: 0.5 Cigarettes Per Day: 10 e-Cigarette/Vaping Use: Never Used service: No Current occupational status: employed Cognitive needs: No Hearing needs: No Vision needs: No Review of Systems Const All systems reviewed & are unremarkable except as noted in HPI and below Physical Exam Vital Signs: Last Vital Signs Pulse 78 01/18/25 13:47 BP 122/86 01/18/25 13:47 Pulse Ox 99 01/18/25 13:47 Oxygen Delivery Method Room Air 01/18/25 13:47 BMI result Body Mass Index 36.8 No apparent distress Nonicteric Abdomen soft, nondistended Alert and oriented x3, normal gait Assessment & Plan Assessment & Plan (1) Bloody stools: Code(s): K92.1 - Melena Category: Medical Plan Pt with hematochezia ongoing x months. Will get updated CBC and iron profile. She will also be booked for a diagnostic colo to eval further. Requests small volume prep. Miralax gatorade prep reviewed and Rx sent to pharmacy. Follow up after colo Orders: Orders IRON PROFILE 01/18/25 K92.1 - Melena Ferritin 01/18/25 K92.1 - Melena Complete Blood Count Auto Diff 01/18/25 K92.1 - Melena Medications: New polyethylene glycol 3350 (Miralax) mix in 64 oz of gatorade for colonoscopy prep 238 grams PO ONCE 238 grams 0RF Coding Level of Care Code New Pt Level 4 (18783) Diagnoses Bloody stools K92.1
[2025-01-18 13:47] VITALS: BP 122/86; PULSE 78; O2SAT 99; BMI 36.8
== END 2025-01-18 15:00 | disposition home or self-care (01) ==
LOC: HO.HGI 13:08
PROVIDERS: Visit Provider Internal Medicine
DX: K92.1 Melena (principal)
CPT/HCPCS: 99204

== ENCOUNTER 2025-03-16 11:16 | Outpatient (REF) | payer OTHER, SELFPAY ==
[2025-03-16 12:35] LABS: MANUAL DIFF FLAG NO
[2025-03-16 13:38] LABS: Hematocrit 45.2 % (37.0-47.0); Hemoglobin 15.6 g/dl (12.0-16.0); Imm Gran Abs Auto 0.02 X10*3/uL (0.00-0.03); Imm Gran Pct Auto 0.3 % (0.0-0.4); Lymphocytes Absolute Auto 2.1 X10*3/uL (1.2-4.9); Mean Corpuscular HGB Conc 34.5 g/dl (31.0-35.0); Mean Corpuscular Hemoglobin 31.5 pg (27.0-33.0); Mean Corpuscular Volume 91.1 fL (80.0-98.0); NRBC Abs Auto 0.000 X10*3/uL (0.0-0.012); NRBC Pct Auto 0.0 /100WBC (0.0-0.2); Platelet Count 209 X10*3/uL (160-400); Red Blood Count 4.96 X10*6/uL (4.20-5.50); White Blood Count 7.2 X10*3/uL (4.8-10.8)
[2025-03-16 13:49] LABS: Hemoglobin A1C 129.5167 umol/L; Total Hemoglobin (HGBA1C) 4057.8626 umol/L
[2025-03-16 13:59] LABS: Appearance Urine Clear; Glucose Urine UA Negative (Negative); PH 5.5 (5.0-9.0); Specific Gravity - Urine >= 1.030 (1.005-1.025); UMIC TRIGGER UACC YES
[2025-03-16 14:08] LABS: Alanine Aminotransferase 27 U/L (0-31); Albumin Level 4.6 g/dL (3.5-5.0); Alkaline Phosphatase 59 U/L (39-117); Anion Gap 12 (12-20); Aspartate Amino Transferase 27 U/L (5-31); Blood Urea Nitrogen 9 mg/dL (9-16); Calcium 9.3 mg/dL (8.4-10.2); Carbon Dioxide 24 mmol/L (22-29); Chloride 106 mmol/L (96-108); Cholesterol 237 mg/dL (<200); Estimated Glomerular Filt Rate > 60; HDL Cholesterol 48 mg/dL (>40); Iron 187 mcg/dL (30-160); Percent Iron Saturation 72 % (15-50); Potassium 4.0 mmol/L (3.3-5.1); Sodium 138 mmol/L (135-145); Total Iron Binding Capacity 259 mcg/dL (228-428); Total Protein 7.4 g/dL (6.5-8.0); Triglycerides 133 mg/dL (<150); Unsaturated Iron Binding 72 ug/dL
[2025-03-16 14:23] LABS: Ferritin 131 ng/mL (10-250)
== END 2025-03-16 11:17 | disposition home or self-care (01) ==
LOC: HO.LAB 11:16
PROVIDERS: Internal Medicine
DX: E78.00 Pure hypercholesterolemia, unspecified (principal); F32.9 Major depressive disorder, single episode, unspecified; E55.9 Vitamin D deficiency, unspecified; K21.9 Gastro-esophageal reflux disease without esophagitis; R74.01 Elevation of levels of liver transaminase levels; R20.0 Anesthesia of skin; R20.2 Paresthesia of skin; R51.9 Headache, unspecified; R00.2 Palpitations; R07.9 Chest pain, unspecified; F41.9 Anxiety disorder, unspecified; K92.1 Melena; F17.200 Nicotine dependence, unspecified, uncomplicated; Z13.31 Encounter for screening for depression; Z13.39 Encounter for screening examination for other mental health and behavioral disorders
CPT/HCPCS: 36415; 80053; 80061; 81001; 81003; 82306; 82728; 83036; 83540; 84443; 85025; 96127

== ENCOUNTER 2025-03-16 11:16 | Outpatient (AMB) | payer OTHER, SELFPAY ==
[2025-03-16 11:28] VITALS: BP 120/76; PULSE 84; RESP 18; TEMP 36.3; O2SAT 96; BMI 36.0
--- NOTE | 2025-03-16 11:28 | A.OFFPC_ITS ---
Vital Signs 03/16/25 11:28 Height 5 ft 7 in Weight 230 lb BMI 36.0 BP 120/76 Blood Pressure Location Lt brachial Position Sitting Respiration 18 Pulse 84 Pulse Source Pulse Oximeter Temp 97.3 F Temp Source Temporal Artery Scan Pulse Oximetry (%) 96 Oxygen Delivery Method Room Air Intake Visit Reasons: hld/vit D/anxiety Collection Coordinator Required: No Accompanied by: Self / Same As Patient Allergies No Known Allergies Allergy (Verified 03/16/25 11:51) Medication List - Last Reconciled 03/16/25 by MATILDE Keene acetaminophen 500 mg PO Q6H PRN bisacodyl (Dulcolax (bisacodyl)) 20 mg (4 x 5 mg) PO ONCE 1 day bupropion HCl XL (Wellbutrin XL) 150 mg PO QAM cholecalciferol (vitamin D3) 25 mcg PO DAILY cyclobenzaprine 10 mg PO TID PRN hydroxyzine HCl 25 mg PO TID magnesium oxide 400 mg PO DAILY ondansetron 4 mg PO Q8H PRN polyethylene glycol 3350 (Miralax) 238 grams PO ONCE sumatriptan succinate 50 mg PO ONCE PRN Tobacco use date assessed: 03/16/25 Dental Screening Dental Screen Date: 03/16/25 Did you have a dental visit in the last 12 months?: No Did you have a dental problem in the last 6 months where you did not have access to dental care?: No Was dental information given to patient?: Patient has dentist HPI hld/vit D/anxiety HPI Details The patient is a 39-year-old female presenting with depression and back pain. The patient reports experiencing depression, describing herself as functionally depressed. She is currently taking Wellbutrin, 150 mg in the morning and 100 mg at noon, which she believes helps her sleep better at night. She has been seeing a therapist and psychiatrist, but due to a language barrier with the therapist, she is seeking a new one. The patient has a history of back pain, initially discovered in 2019, with an MRI revealing mild spondylosis. She was unaware of these findings until recently and has been physically active, including moving heavy furniture alone. The back pain has progressed to the point where she struggles to hold herself up and requires support when bending over. She reports numbness in her toes, particularly the right big toe, and is concerned about potential diabetes due to family history. She has also been experiencing toenail fungus, likely due to prolonged use of boots. She has not completed preordered labs, and is encouraged to get this done [facility] Medical History Smoker Depression Bronchitis Surgical History ACL tear Social History Housing: House Patient Tobacco Use Status: Current everyday Tobacco user Cigarette Packs Per Day: 0.5 Cigarettes Per Day: 10 e-Cigarette/Vaping Use: Never Used service: No Current occupational status: employed Cognitive needs: No Hearing needs: No Vision needs: No Questionnaire PHQ-9 Over the last 2 weeks, how often have you been bothered by any of the following problems? 1. Little interest or pleasure in doing things: not at all 2. Feeling down, depressed, or hopeless: not at all 3. Trouble falling or staying asleep, or sleeping too much: not at all 4. Feeling tired or having little energy: not at all 5. Poor appetite or overeating: not at all 6. Feeling bad about yourself - or that you are a failure or have let yourself or your family down: not at all 7. Trouble concentrating on things, such as reading the newspaper or watching television: not at all 8. Moving or speaking so slowly that other people could have noticed. Or the opposite - being so fidgety or restless that you have been moving around a lot more than usual: not at all 9. Thoughts that you would be better off or of hurting yourself in some way: not at all Total score: 0 Depression Screening Interpretation: Negative Depression Screening Done: Yes Source: Developed by Drs. James Lang, Tabitha De, Guillermo Spencer and colleagues, with an educational jayro from [employer]. Thrive Questionnaire Date Thrive assessed: 03/16/25 I am a: Patient What is your living situation today?: I have a steady place to live Within the past 12 months, did the food you bought not last and you didn't have the money to get more?: Sometimes True Within the past 12 months, did you worry whether your food would run out before you got money to buy more?: Sometimes True Do you have trouble paying for medicines?: Yes Do you have trouble getting transportation to medical appointments?: No Do you have trouble paying your heating and electricity bill?: Yes Do you have trouble taking care of your child, family member or friend?: Yes Do you have trouble with day-to-day activities such as bathing, preparing meals, shopping, managing finances, etc.?: No Are you currently unemployed and looking for a job?: No Are you interested in more education?: No Currently or been in a relationship where the following occur: I choose not to answer THRIVE Score: 3 AUDIT C Alcohol Use Questionnaire (AUDIT-C) 1. How often do you have a drink containing alcohol?: Never 3. How often do you have six or more drinks on one occasion?: Never Total Score: 0 MATT-7 AMB Questionnaire MATT-7 Date MATT - 7 assessed: 03/16/25 Feeling nervous, anxious, or on edge: 0 = Not at all Not being able to stop or control worryin = Not at all Worrying too much about different things: 0 = Not at all Trouble relaxin = Not at all Being so restless that it is hard to sit still: 0 = Not at all Becoming easily annoyed or irritable: 0 = Not at all Feeling afraid as if something awful might happen: 0 = Not at all Total MATT-7 score (0-4 normal; 5-9 mild; 10-14 moderate; 15-21 severe): 0 Source: Developed by Drs. James Lang, Tabitha De, Guillermo Spencer and colleagues, with an educational jayro from [employer]. Review of Systems Const Denies body aches, Denies chills, Denies fever(s), Reports headache(s) (On and off) and Denies poor appetite Eyes Reports no additional complaints ENT Denies dysphagia, Denies dizziness, Reports headache(s) (On and off) and Denies odynophagia Card Denies chest pain, Denies syncope, Denies edema, Denies irregular heart rhythm, Denies lightheadedness and Denies dyspnea Resp Denies cough and Denies dyspnea GI Denies abdominal pain, Denies constipation, Denies dysphagia, Reports heartburn (Depending on what she eats), Denies diarrhea, Denies nausea, Denies odynophagia and Denies vomiting Reports no additional complaints Musc Denies abnormal gait, Reports back pain and Reports numbness (In toes intermittently) Skin/Breast Reports system reviewed and no additional complaints, except as documented Neuro Denies Abnormal speech present, Denies abnormal gait, Denies dizziness, Denies syncope, Reports headache(s) (On and off) and Reports numbness (In toes intermittently) Psych Reports depression, Denies homicidal ideation and Denies suicidal ideation Physical exam (Primary Care) Vital Signs: Last Vital Signs Temp 97.3 F 03/16/25 11:28 Pulse 84 03/16/25 11:28 Resp 18 03/16/25 11:28 BP 120/76 03/16/25 11:28 Pulse Ox 96 03/16/25 11:28 Oxygen Delivery Method Room Air 03/16/25 11:28 BMI result Body Mass Index 36.0 Tobacco/Smoking Status: Tobacco use Status Tobacco use date assessed 03/16/25 03/16/25 11:30 Patient Tobacco Use Status Current everyday Tobacco 03/16/25 11:30 e-Cigarette/Vaping Use Never Used 03/16/25 11:30 PHQ-9: PHQ-9 Score PHQ-9: Total score 0 03/16/25 12:15 Depression Screening Interpretation: Negative Thrive Assessment: Date of Thrive Assessment Date Thrive assessed 03/16/25 03/16/25 11:30 Currently or been in a relationship where the following occur: I choose not to answer Const General: healthy appearing, no acute distress, alert and awake Nutritional Appearance: well nourished Orientation/consciousness: oriented to person, oriented to place and oriented to time HENMT Ears: TM's normal bilaterally General nose exam: Normal nasal mucous membranes and turbinates present Eyes Conjunctivae: conjunctivae normal Sclerae: sclerae normal Pupils: Equal, round and reactive pupils present Neck Neck: Yes no lymphadenopathy and Yes no JVD Thyroid: Thyroid normal Carotids: no bruits Resp Effort & Inspection: normal respiratory effort and not tachypneic Auscultation: no crackles, no rales, no rhonchi and no wheezes Cardio Rate: regular rate Rhythm: regular rhythm Heart sounds: S1 normal heart sound present, no murmurs and normal S1 and S2 GI Palpation (GI): Soft to palpation, nontender, no hepatomegaly and no splenomegaly Auscultation: normal bowel sounds General: Yes no CVA tenderness Back/Spine/Pelvis Back: no CVA tenderness Skin General skin exam: no rashes or lesions noted and dry skin Neuro General: oriented to person, oriented to place and oriented to time Cranial nerves: Yes Equal, round and reactive pupils present Speech: No Abnormal speech present Gait exam (Neuro): Normal gait present Motor exam (neuro): no tremor noted Extrem Right upper extremity: full ROM Left upper extremity: full ROM Right lower extremity: full ROM; no edema Left lower extremity: full ROM; no edema Psych Mental Status: mental status grossly normal Speech and movement: Normal speech and movement present Affect: normal affect Attitude: cooperative Thought process: Normal thought process present Coding Level of Care Code Est Pt Level 4 (94501) Diagnoses Reactive depression F32.9 Depression Type: reactive depression Elevated LDL cholesterol level E78.00 Vitamin D deficiency E55.9 Gastroesophageal reflux disease, unspecified whether esophagitis present K21.9 Esophagitis presence: esophagitis presence not specified Elevated alanine aminotransferase (ALT) level R74.01 Smoker F17.200 Numbness and tingling of both feet R20.0; R20.2 Generalized headaches R51.9 Time Spent (min) 41 Assessment & Plan Assessment & Plan (1) Depression: Code(s): F32.A - Depression, unspecified Category: Medical Qualifiers: Depression Type: reactive depression Qualified Code(s): F32.9 - Major depressive disorder, single episode, unspecified (2) Elevated LDL cholesterol level: Code(s): E78.00 - Pure hypercholesterolemia, unspecified Category: Medical (3) Vitamin D deficiency: Code(s): E55.9 - Vitamin D deficiency, unspecified Category: Medical (4) GERD (gastroesophageal reflux disease): Code(s): K21.9 - Gastro-esophageal reflux disease without esophagitis Category: Medical Qualifiers: Esophagitis presence: esophagitis presence not specified Qualified Code(s): K21.9 - Gastro-esophageal reflux disease without esophagitis (5) Elevated alanine aminotransferase (ALT) level: Code(s): R74.01 - Elevation of levels of liver transaminase levels Category: Medical (6) Smoker: Code(s): F17.200 - Nicotine dependence, unspecified, uncomplicated Category: Social Hx (7) Numbness and tingling of both feet: Code(s): R20.0 - Anesthesia of skin; R20.2 - Paresthesia of skin Category: Medical (8) Generalized headaches: Code(s): R51.9 - Headache, unspecified Category: Medical Plan The patient will continue her current medication regimen of Wellbutrin, with a focus on maintaining her mental health. She is advised to seek a new therapist to address the language barrier and continue her psychiatric care. For her back pain, she will undergo physical therapy to strengthen the muscles around her spine and alleviate pressure from the joints. The patient is scheduled for a colonoscopy as part of her preventative care. She is also advised to monitor her blood glucose levels due to her family history of diabetes and the numbness in her toes. Complete pre-ordered labs to further assess health status. Encouraged smoking cessation. Reinforced dietary restriction. Continue omeprazole otc. Follow with GI as scheduled Encouraged fluids hydration to improve headaches. Continue sumatriptan prn. Follow up with neurology as scheduled. Continue vitamin D3 25 mcg daily Patient was informed and verbally consented to the use of an ambient scribe for clinic note documentation during this visit. Orders: Orders Hemoglobin A1c Today E55.9 - Vitamin D deficiency, unspecified, E78.00 - Pure hypercholesterolemia, unspecified, F17.200 - Nicotine dependence, unspecified, uncomplicated, F32.9 - Major depressive disorder, single episode, unspecified, F41.9 - Anxiety disorder, unspecified, K21.9 - Gastro-esophageal reflux disease without esophagitis, R00.2 - Palpitations, R07.9 - Chest pain, unspecified, R 20.0 - Anesthesia of skin, R20.2 - Paresthesia of skin, R74.01 - Elevation of levels of liver transaminase levels
--- OUTSIDE RECORDS SUMMARY | 2025-03-16 11:58 | XMS_ITS | Clinical Summary ---
Author Organization [address] Address [address] [place] [phone] Phone Care Team Providers Care Director Search Name Role Phone Mahogany Franks Primary Care Provider [phone] Allergies Active Allergy Reactions Criticality Noted Date Comments Allergies Not On File Hives 01/18/2025 Medications buPROPion SR (WELLBUTRIN SR) 100 mg [...] Encounters Date Type Department Care Team Description 01/18/2025 10:00 AM EDT Consult Orthopedic Surgery [facility] [address] [place] [address], [place] [address] Madiha Marieeyd Danilo, DPM Bilateral foot pain (Primary Dx); Tinea unguium; Bunion, right foot; Lumbosacral radiculopathy from Last 3 Months Surgical History Surgery Date Site/Laterality Comments UTERINE FIBROID EMBOLIZATION 08/10/2021 - 08/09/2022 OTHER SURGICAL HISTORY 08/10/2018 - 08/09/2019 Left knee / acl ( [id number]) Medical History Medical History Date Comments Adhd [...] - - Weight 104 kg (230 lb) 01/18/2025 10:06 AM EDT Height 170.2 cm (5' 7.01 ) 01/18/2025 10:06 AM E DT Body Mass Index 36.01 01/18/2025 10:06 AM EDT Plan of Treatment Health Maintenance Due Date Last Done Comments Hepatitis A Vaccines (1 of 2 - Risk 2-dose series) 2003 Hepatitis B Vaccines (1 of 3 - 19+ 3-dose series) 2003 Pneumococcal Vaccine: Pediatrics (0 to 5 Years) and At-Risk Patients (6 to 49 Years) (1 of 2 - PCV) 2003 Cholesterol Screening (Lipid Panel) 03/04/2024 HIV Screening 03/04/2024 Hepatitis C Screening 03/04/2024 Social Influencers of Health Screening 03/04/2024 COVID-19 Vaccine (1 - 2023-2 5 season) 2024 Depression Screening 08/10/2024 Influenza Vaccine (#1) 2025 9, 05/19/2017 Breast Cancer Screening 09/16/2026 09/16/2024 DTaP,Tdap,and [...] Procedure Name Priority Date/Time Associated Diagnosis Comments XR LUMBAR SPINE 4+ VIEWS Routine 01/18/2025 10:43 AM EDT Bilateral foot pain XR FOOT 3+ VIEWS BILAT Routine 01/18/2025 10:19 AM EDT Bilateral foot pain HPV WITH REFLEX GENOTYPE Routine 09/21/2024 11:11 AM EST Encounter for well woman exam with routine gynecological exam Screening for cervical cancer MG MAMMO DIGITAL DIAGNOSTIC BILAT Routine 09/16/2024 8:16 AM EST from Last 3 Months or Most Recently Relevant to Health Maintenance Results * XR Lumbar Spine 4+ Views (01/18/2025 10:43 AM EDT) Anatomical Region Laterality Modality Spine, L-spine Computed Radiogr aphy 01/18/2025 11:3 8 AM EDT Impressions 01/18/2025 11:41 AM EDT Mild spondylosis. -------- FINAL REPORT -------- Dictated By: Earlene Mcintosh Dictated Date: 01/18/2025 11:38 ET Assigned Physician: Earlene Mcintosh Reviewed and Electronically Signed By: Earlene Mcintosh Signed Date: 01/18/2025 11:41 ET Workstation ID: [id number] Transcribed By: Self Edit Transcribed Date: 01/18/2025 11:38 ET Narrative 01/18/2025 11:41 AM EDT LUMBOSACRAL SPINE, 4 VIEWS INCLUDING OBLIQUES HISTORY: Bilateral foot pain. FINDINGS: There is normal alignment of the lumbosacral spine. No fractures are seen. There is mild endplate spurring and decreased disc height at L5-S1. There is mild endplate spurring at other levels as well. There is mild facet hypertrophy at the lower lumbar spine. There are calcified uterine fibroids noted, and these were previously evaluated on pelvic ultrasound 10/19/2024. Procedure Note Earlene Mcintosh MD - 01/18/2025 LUMBOSACRAL SPINE, 4 VIEWS INCLUDING OBLIQUES HISTORY: Bilateral foot pain. FINDINGS: There is normal alignment of the lumbosacral spine. No fractures areseen. There is mild endplate spurring and decreased disc height at L5-S1. Thereis mild endplate spurring at other levels as well. There is mild facet hypertrophy at the lower lumbar spine. There are calcified uterine fibroids noted, and these were previouslyevaluated on pelvic ultrasound 10/19/2024. IMPRESSION: Mild spondylosis. -------- FINAL REPORT -------- Dictated By: Earlene Mcintosh Dictated Date: 01/18/2025 11:38 ET Assigned Physician: Earlene Mcintosh Reviewed and Electronically Signed By: Earlene Mcintosh Signed Date: 01/18/2025 11:41 ET Workstation ID: [id number] Transcribed By: Self Edit Transcribed Date: 01/18/2025 11:38 ET Cesario Mariee DPM IMG XR PROCEDURES Final Res ult * XR Foot 3+ Views bilat (01/18/2025 10:19 AM EDT) Anatomical Region Laterality Modality Lower Extremities, Foot Bilateral Computed Radiography Narrative 01/18/2025 1:01 PM EDT Bilateral feet 3 views weightbearing: No fractures or dislocation. Normal bone mineralization. Joint spaces are within normal limits. Right talonavicular joint shows previous trauma with chip fracture. Minimal soft tissue swelling throughout the feet. 1-2 intermetatarsal angle within normal limits. Slight HAV deformity. Cesario Mariee DPAbigail IMG XR PROCEDURES Final Res ult * HPV with reflex genotype (09/21/2024 11:11 AM EST) HPV Negative Negative LAB MICROBIOLOGY METHOD 09/23/2024 1:09 PM EST [facility] Brushing/Spatula Cervix uteri structure / Unknown 09/21/2024 11:11 AM EST 09/22/2024 6:04 AM EST Silvia STEWARD LAB MOLECULAR DIAGNOSTICS ORD ERABLES Final Result [facility] [address] [place] [address], * MG Mammo Digital Diagnostic bilat (09/16/2024 8:16 AM EST) Anatomical Region Laterality Modality Breast Bilateral Mammography Historical Provider IMGalen BI PROCEDURES Final R esult from Last 3 Months or Most Recently Relevant to Health Maintenance Insurance [employer] [facility] Care Teams Director Search Relationship Specialty Start Date End Date Mahogany Franks PA [address] [place] [address], [address] [place] [address] PCP - General 12/22/24
== END 2025-03-16 12:17 | disposition home or self-care (01) ==
LOC: HO.HMCH 11:17
DX: F32.9 Major depressive disorder, single episode, unspecified (principal); E78.00 Pure hypercholesterolemia, unspecified; E55.9 Vitamin D deficiency, unspecified; K21.9 Gastro-esophageal reflux disease without esophagitis; R74.01 Elevation of levels of liver transaminase levels; F17.200 Nicotine dependence, unspecified, uncomplicated; R20.0 Anesthesia of skin; R20.2 Paresthesia of skin; R51.9 Headache, unspecified

== ENCOUNTER 2025-03-23 07:52 | Day surgery (SDC) | payer OTHER, SELFPAY ==
--- OUTSIDE RECORDS SUMMARY | 2025-03-17 11:46 | XMS_ITS | Clinical Summary ---
Author Organization [address] Address [address] [place] [phone] Phone Care Team Providers Care Candy Feeder Name Role Phone Mahogany Franks Primary Care Provider Allergies Active Allergy Reactions Criticality Noted Date [...] 01/18/2025 10:00 AM EDT Consult Orthopedic Surgery [facility] [address] [place] [address], [place] [address] Madiha Marieeyd Danilo, DPM Bilateral foot pain (Primary Dx); Tinea unguium; Bunion, right foot; Lumbosacral radiculopathy from Last 3 Months Surgical History Surgery Date Site/Laterality Comments UTERINE FIBROID EMBOLIZATION 08/10/2021 - 08/09/2022 OTHER SURGICAL HISTORY 08/10/2018 - 08/09/2019 Left knee / acl ( [id number]) Medical History Medical History Date Comments Adhd [...] Signed Date: 01/18/2025 11:41 ET Workstation ID: [id number] Transcribed By: Self Edit Transcribed Date: 01/18/2025 [...] Signed Date: 01/18/2025 11:41 ET Workstation ID: [id number] Transcribed By: Self Edit Transcribed Date: 01/18/2025 [...] LAB MICROBIOLOGY METHOD 09/23/2024 1:09 PM EST [facility] Brushing/Spatula Cervix uteri structure / Unknown 09/21/2024 11:11 AM EST 09/22/2024 6:04 AM EST Silvia STEWARD LAB MOLECULAR DIAGNOSTICS ORD ERABLES Final Result [facility] [address] [place] [address], * MG Mammo Digital Diagnostic bilat (09/16/2024 8:16 AM EST) Anatomical Region Laterality Modality Breast Bilateral Mammography Historical Provider IMGalen BI PROCEDURES Final R esult from Last 3 Months or Most Recently Relevant to Health Maintenance Insurance [employer] [facility] Care Teams Candy Feeder Relationship Specialty Start Date End Date Mahogany Franks PA [address] [place] [address], [address] [place] [address] PCP - General 12/22/24
[2025-03-21 13:07] VITALS: BMI 36.0
--- NOTE | 2025-03-22 10:49 | HO.ANESPROP2 ---
Documented by User: Leeanne Jackson NP 03/22/25 10:50 HPI - Anesthesia Eval Consult details Narrative: 39yo F for Colonoscopy PMFSH Active Problems Active Problems: All Active Problems Generalized headaches (Acute) Numbness and tingling of both feet (Acute) GERD (gastroesophageal reflux disease) (Acute) Toenail fungus (Acute) Great toe pain (Acute) Bloody stools (Acute) Nipple discharge (Acute) Mastitis (Acute) Attention deficit (Acute) Elevated alanine aminotransferase (ALT) level (Acute) Epigastric pain (Acute) Vitamin D deficiency (Acute) Elevated LDL cholesterol level (Acute) Screening for cervical cancer (Acute) Right knee pain (Acute) Breast cancer screening (Acute) Anxiety (Acute) Heart palpitations (Acute) Chest pain at rest (Acute) Annual physical exam (Acute) Smoker (Acute) Depression (Acute) Past Medical History Medical History (Updated 03/23/25 @ 09:16 by Pilar Robins RN) History of broken nose Palpitations Anxiety GERD (gastroesophageal reflux disease) Smoker Depression Bronchitis Surgical History Surgical History (Updated 03/23/25 @ 09:16 by Pilar Robins RN) History of repair of anterior cruciate ligament Social History Social History Housing: House Patient Tobacco Use Status: Current everyday Tobacco user Tobacco use type: Cigarette Cigarette Packs Per Day: 1 Cigarettes Per Day: 20.0 e-Cigarette/Vaping Use: Never Used Use of substances other than those prescribed or required for medical reasons: Yes Are you DNR?: No Advance Directives: No Advance Directives Information Provided: Yes : No Poor oral hygiene: No service: No Current occupational status: employed Cognitive needs: No Hearing needs: No Vision needs: No Meds Allergies Allergy/AdvReac Type Severity Reaction Status Date / Time No Known Allergies Allergy Verified 03/16/25 11:51 Home Medications ?Medication ?Instructions ?Recorded ?Confirmed ?Last Taken ?Type hydroxyzine HCl 25 mg tablet 25 mg PO TID 01/18/25 03/21/25 Unknown History Exam Height,Weight and Vital Signs: Height 5 ft 7 in Weight 104.326 kg Pertinent Lab Results Pertinent Lab Results: Laboratory Tests 03/16/25 12:33 WBC 7.2 Hgb 15.6 Hct 45.2 Plt Count 209 Sodium 138 Potassium 4.0 Chloride 106 Carbon Dioxide 24 BUN 9 Creatinine 0.82 Assessment and Plan Assessment Anesthesia Assessment: Chart Reviewed Documented by User: Mayito Encarnacion MD 03/23/25 10:42 PMF Past Medical History Medical History (Updated 03/23/25 @ 09:16 by Pilar Robins RN) History of broken nose Palpitations Anxiety GERD (gastroesophageal reflux disease) Smoker Depression Bronchitis Family History Family history of problems with anesthesia: No Surgical History Surgical History (Updated 03/23/25 @ 09:16 by Pilar Robins RN) History of repair of anterior cruciate ligament History of Problems with Anesthesia: No Social History Social History Housing: House Patient Tobacco Use Status: Current everyday Tobacco user Tobacco use type: Cigarette Cigarette Packs Per Day: 1 Cigarettes Per Day: 20.0 e-Cigarette/Vaping Use: Never Used Use of substances other than those prescribed or required for medical reasons: Yes Are you DNR?: No Advance Directives: No Advance Directives Information Provided: Yes : No Poor oral hygiene: No service: No Current occupational status: employed Cognitive needs: No Hearing needs: No Vision needs: No Meds Allergies Allergy/AdvReac Type Severity Reaction Status Date / Time No Known Allergies Allergy Verified 03/16/25 11:51 Home Medications ?Medication ?Instructions ?Recorded ?Confirmed ?Last Taken ?Type hydroxyzine HCl 25 mg tablet 25 mg PO TID 01/18/25 03/21/25 Unknown History Exam Airway Mallampati Class: II TM Dist: >3cm Neck ROM: Full Assessment and Plan Assessment Anesthesia Assessment: Anesthesia Plan Discussed Final Anesthetic Review Family History of Problems with Anesthesia: No History of Problems with Anesthesia: No NPO: Yes ASA Class: II Final Preanesthetic Review: No Changes in Pt Med Stat, Meds/Allgs Chart Reviewed, Consent Obtained/Reviewed and Anes Risks/Benef Reviewed Patient Risk: Intermediate Procedure Risk: Low Anesthetic Plan Anesthetic Plan: GA Disposition: Standard PACU
[2025-03-23 09:07] VITALS: BMI 36.0
--- NOTE | 2025-03-23 09:24 | MHC.SHP ---
Pre-Procedural Eval Section A - 24 Hr Update-Section A only Date of Service: 03/23/25 Section B - Complete if H&P > 30 days Chief Complaint: Hematochezia Details of Present Illness: Palpitations Anxiety GERD (gastroesophageal reflux disease) Smoker Depression Bronchitis Surgical History (Updated 03/21/25 @ 13:07 by Yolanda Bauer RN) History of repair of anterior cruciate ligament Allergies: Allergies Allergy/AdvReac Type Severity Reaction Status Date / Time No Known Allergies Allergy Verified 03/16/25 11:51 Review of Systems Review of Systems Comment: Ten point ROS negative Exam Exam Comment: Gen appear: No acute distress HEENT: no icterus Chest: No overt resp distress Abd: soft, nontender, nondistended Psych: Stable affect, answering questions appropriately Neuro: A/Ox3 noted to move all extremities spontaneously Ext: no peripheral edema Plan Diagnosis/Plan: Unchanged I have reviewed the history and physical and performed a pertinent physical examination on my patient. No changes have occurred unless specified. Time Spent With Patient Time: Total time managing care of this patient today ____ minutes.
[2025-03-23 09:27] VITALS: BP 126/88; PULSE 59; RESP 16; TEMP 36.7; O2SAT 99
[2025-03-23 09:41] LABS: UPreg QC Valid YES
[2025-03-23] MEDS: Lactated Ringers 1,000 ML 100 ML IVCONT (09:50)
--- NOTE | 2025-03-23 10:57 | P.OPN-COLO_ITS ---
Colonoscopy Operative Note Operative Note Date of Service: 03/23/25 Narrative: Procedure: Colonoscopy Indication: Hematochezia Endoscopist: Alexa Dougherty MD Anesthesia Provider: Dr Mayito Encarnacion Anesthesia type: MAC Instrument: Olympus [id number]-H190L Consent: Indication, risks vs benefits, and alternatives were discussed with the patient who gave written informed consent to proceed. EKG, pulse, pulse oximetry and blood pressure were monitored throughout the procedure. Please see anesthesia flowsheet. Procedure: The patient was brought to the procedure room and placed in the left lateral decubitus position. IV medications were administered by the anesthesia provider in attendance. A digital rectal exam was performed which was abnormal due to finding of hemorrhoids. A distal attachment cap was affixed to the tip of the colonoscope which was then inserted through the anus and advanced through the colon to the cecum at 75 cm,and terminal ileum. Appendiceal orifice and ileocecal valve were identified. Mucosa was carefully examined under high definition white light as the instrument was slowly withdrawn in a retrograde panoramic fashion. Retroflexion was performed in rectum. The procedure was not difficult. There were no immediate obvious complications. The quality of the prep was BBPS: 2+3+3 = adequate Withdrawal time 13 minutes. Limitations: No limitations. Findings: Mucosa: Normal to cecum and terminal ileum. Protruding lesions: * 1 pedunculated polyp of size 5 cm in sigmoid colon at 35 cm. This was spontaneously oozing, friable and highly suspicious for underlying malignancy or HGD. Hot snare polypectomy was performed. The polyp was completely removed en-bloc and retrieved. Resolution 360 clip was placed at the base of the polyp to prevent post polypectomy bleeding. Endo nathalia was injected 2 cm DISTAL to the site of polypectomy. * Large internal hemorrhoids with stigmata of recent bleeding. Impression: 1. Normal colon mucosa 2. Spontaneously oozing 5 cm malignant appearing sigmoid colon polyp (polypectomy, endoclip, tattoo) 3. External and internal hemorrhoids Recommendations: - Follow path results. - if histology confirms high-grade dysplasia or malignancy, will need CT abdomen/pelvis and surgery referral. - patient will also be counseled to have her first-degree relatives start screening early at 30 years of age
[2025-03-23 11:04] VITALS: BP 113/63; PULSE 72; RESP 16; TEMP 36.1; O2SAT 99
[2025-03-23 11:19] VITALS: BP 128/78; PULSE 57; RESP 18; TEMP 36.2; O2SAT 99
== END 2025-03-23 12:17 | disposition home or self-care (01) ==
PROVIDERS: Nurse Practitioner; Visit Provider Internal Medicine
PROC: 0DJD8ZZ Inspection of Lower Intestinal Tract, Via Natural or Artificial Opening Endoscopic (ICD-10-PCS; CPT 45378; principal; 2025-03-23 10:10)
DX: K62.5 Hemorrhage of anus and rectum (principal); D12.5 Benign neoplasm of sigmoid colon; K64.8 Other hemorrhoids; K64.4 Residual hemorrhoidal skin tags; F17.210 Nicotine dependence, cigarettes, uncomplicated
CPT/HCPCS: 45385; 45381; 81025; 88305; J2003; J2704

== ENCOUNTER → 2025-03-23 07:52 | Outpatient (BNV) | payer OTHER, SELFPAY | PROVIDERS: Visit Provider Internal Medicine | DX: K62.5 Hemorrhage of anus and rectum (principal); D12.5 Benign neoplasm of sigmoid colon; K64.8 Other hemorrhoids | CPT/HCPCS: 45381; 45385 ==